=== PATIENT | male | born 1960 | race Caucasian/White ===

== ENCOUNTER 2016-10-09 07:01 | Emergency (ER) | payer MEDICARE, MEDICAID ==
[2016-10-09] MEDS ORDERED: METOPROLOL SUCC *XL* 25MG TAB (TopROL *XL*) As Ordered ONE (07:48)
[2016-10-09] MEDS ORDERED: LORazepam 2 MG/ML VIAL (J2060) As Ordered ONE (08:46)
--- NOTE | 2016-10-09 08:46 | REP ---
Clinical: Malaise. Comparison: 08/12/2012. Findings: The mediastinum and cardiac silhouette are stable and within normal limits for portable technique. The lung quintana are clear without acute consolidation, effusion, or pneumothorax. Skeletal structures are intact. Impression: Normal portable chest x-ray Signed by Dave Griffin MD 10/09/2016 08:37 A
[2016-10-09 08:55] LABS: BASO % 0.6 % (0.0-1.0); EOS # 0.1 K/mm3 (0.0-0.50); LARGE UNSTAINED CELL # 0.1 K/mm3 (0.0-0.4); LARGE UNSTAINED CELL % 1.9 % (0.0-4.0); LYMPH # 1.9 K/mm3 (1.5-4.5); LYMPH % 23.8 % (24.0-44.0); MEAN CORPUSCULAR HEMOGLOBIN 32.9 pg (27.0-33.0); MEAN CORPUSCULAR HGB CONC 35.4 g/dl (32.0-36.5); MONO # 0.6 K/mm3 (0.0-0.8); MONO % 8.7 % (0.0-5.0); NEUTROPHILS # 4.6 K/mm3 (1.8-7.7); PLATELET COUNT, AUTOMATED 192 k/mm3 (150-450); RED CELL DISTRIBUTION WIDTH 12.7 % (11.5-14.5); WHITE BLOOD COUNT 7.4 K/mm3 (4.0-10.0)
[2016-10-09 09:11] LABS: ANION GAP 16 MEQ/L (8-16); BLOOD UREA NITROGEN 20 MG/DL (7-18); CALCIUM LEVEL 9.4 MG/DL (8.5-10.1); CARBON DIOXIDE LEVEL 19 MEQ/L (21-32); CHLORIDE LEVEL 105 MEQ/L (98-107); CREATININE FOR GFR 1.11 MG/DL (0.70-1.30); GLOMERULAR FILTRATION RATE > 60.0 (>56); GLUCOSE, FASTING 129 MG/DL (70-105); SODIUM LEVEL 140 MEQ/L (136-145)
--- NOTE | 2016-10-09 10:30 | EDDOCDS ---
Nurse's Notes [facility] Name: Osbaldo Carreon Age: 56 yrs Sex: Male : 1960 Arrival Date: 10/09/2016 Time: 07:01 Bed 10 Private MD: Alondra Natarajan Diagnosis: Malaise and fatigue;Epilepsy and recurrent seizures;Essential (primary) hypertension Presentation: 10/09 07:10 Presenting complaint: Patient states: states FRANKLIN, body aches, and generalized malaise ml6 since waking. Adult Sepsis Screening: The patient does not have new or worsening altered mentation. Patient's respiratory rate is less than 22. Systolic blood pressure is greater than 100. Patient has a qSOFA score of. Suicide/Homicide risk assessment- the patient denies having any suicidal and/or homicidal ideations and does not present with any other emotional, behavioral or mental health complaints. Status: Patient is not a telephone order clerk room service or dependent. Transition of care: patient was not received from another setting of care. 07:10 Acuity: SANGEETHA Level 4 ml6 07:10 Method Of Arrival: Ambulance ml6 08:58 Acuity: SANGEETHA Level 3 ml6 Triage Assessment: 07:22 General: Appears in no apparent distress, Behavior is appropriate for age, cooperative. ml6 Pain: Location: generalized Pain currently is 5 out of 10 on a pain scale. Pain does not radiate. Quality of pain is described as aching, Pain began 2 hours ago Is continuous Alleviated by nothing. Aggravated by increased activity. HIV screening NA for this visit Offered previously. Neurological: Level of Consciousness is awake, alert, Oriented to person, place, time, Beam Dyer are weak on right Paralysis in right Speech with expressive aphasia noted, Facial droop on right, Pupils are PERRLA. Cardiovascular: No deficits noted. Capillary refill < 3 seconds is brisk in bilateral fingers toes Heart tones S1 S2 present. Respiratory: No deficits noted. Airway is patent Respiratory effort is even, unlabored, Respiratory pattern is regular, symmetrical, Breath sounds are clear bilaterally. GI: No deficits noted. Abdomen is obese, Bowel sounds present X 4 quads. Abd is soft and non tender X 4 quads. Historical: - Allergies: no known allergies; - Home Meds: 1. Dilantin 200mg alternating with 300mg every day Oral cap daily (Last dose: 10/08/2016) 2. Lamictal 250mg am and 200mg afternoon Oral tab (Last dose: 10/08/2016 15:00) 3. metoprolol succinate 50 mg Tb24 1 tab once daily (Last dose: 10/08/2016) 4. baclofen 10 mg Oral tab 1 tab 4 times per day (Last dose: 10/08/2016 20:00) 5. gabapentin 300 mg Oral cap 1 cap 3 times per day (Last dose: 10/08/2016 20:00) 6. atorvastatin 20 mg oral tab 1 tab once daily (Last dose: 10/08/2016 20:00) 7. omeprazole 20 mg Oral cpDR 1 cap once daily (Last dose: 10/08/2016) 8. aspirin 325 mg Oral tab 1 tab once daily (Last dose: 10/08/2016) 9. B complex-minerals oral cap daily (Last dose: 10/08/2016) 10. Citracal + D Maximum 400mg/500mg oral tab daily (Last dose: 10/08/2016) 11. Vitamin B-6 B-1 100mg Oral daily (Last dose: 10/08/2016) 12. meloxicam 7.5 mg oral tab 1 tab once daily (Last dose: 10/08/2016) 13. doxycycline daily (Last dose: 10/08/2016 09:30) 14. Combigan 0.2-0.5 % ophthalmic drop 1 drop every 12 hours (Last dose: 10/08/2016 20:00) 15. ketorolac 0.4 % ophthalmic drop 1 drop twice a day (Last dose: 10/08/2016 20:00) 16. betamethasone valerate 0.1 % Topical crea as needed (Last dose: Unknown) 17. clotrimazole 1 % Topical crea as needed (Last dose: Unknown) 18. furosemide 40 mg Oral tab 1 tab bid q prn (Last dose: Unknown) 19. gemfibrozil 600 mg Oral tab 1 tab 2 times per day (Last dose: 10/08/2016 20:00) - PMHx: CVA; Seizures; Hypertension; Psoriasis; - PSHx: Cholecystectomy; ERCP; - The history from nurses notes was reviewed: and I agree with what is documented. - Social history: Smoking status: Patient states former smoker of tobacco. Not able to communicate due to their condition. - : The pt / caregiver states he / she is not on anticoagulants. Home medication list is obtained from the patient, Unable to Verify Home Med List with the patient / caregiver. - Hospitalizations: : No recent hospitalization is reported. - Exposure Risk Screening:: None identified. - Immunization history:: All immunizations up-to-date. - Family history: Not pertinent. - Social history:: the patient is a non-smoker, the patient does not drink alcohol. Screenin:55 Screening information is obtained from the patient. Fall risk: At risk due to gait ml6 disturbance. Assistance ADL's: Requires assistance with meal preparation, this assistance is provided by bathing, assistance is provided by dressing, assistance is provided by toileting, assistance is provided by ambulation, assistance is provided by housework, assistance is provided by medication administration, assistance is provided by. Abuse/DV Screen: The patient / caregiver reports he/she is: not in a situation that causes fear, pain or injury. Nutritional screening: No deficits noted. Advance Directives: Currently, there is no health care proxy. home support is adequate. Assessment: 07:10 General: see triage assessment. ml6 07:55 General: patient's family in room, patient and family refusing any medication at this ml6 time. 08:10 General: Appears in no apparent distress, comfortable. Pain: Denies pain. Neurological: ml6 No deficits noted. Level of Consciousness is awake, alert. Cardiovascular: No deficits noted. Capillary refill < 3 seconds is brisk in bilateral fingers toes. Respiratory: No deficits noted. Airway is patent Respiratory effort is even, unlabored, Respiratory pattern is regular, symmetrical, Breath sounds are clear bilaterally. GI: No deficits noted. 08:40 General: patient transferred back fro CT after 30 sec seizure, patient postictal with ml6 sonorous resp, Dr. Castillo and family at bedside. 09:10 Reassessment: Patient states symptoms have improved. patient now AAOx3 with family in ml6 room, denies complaint. 09:38 General: patient sitting in up in bed AAOx3, patient eating sami toast. ml6 10:28 General: Appears in no apparent distress, comfortable, Behavior is appropriate for age, ml6 cooperative. Pain: Denies pain. Neurological: No deficits noted. Level of Consciousness is awake, alert, Oriented to person, place, time. Cardiovascular: No deficits noted. Capillary refill < 3 seconds is brisk in bilateral fingers toes. Respiratory: No deficits noted. Airway is patent Respiratory effort is even, unlabored, Respiratory pattern is regular, symmetrical, Breath sounds are clear bilaterally. GI: No deficits noted. Abdomen is obese, Bowel sounds present X 4 quads. Vital Signs: 07:10 Temp 97.8(O); ml6 07:11 BP 161 / 93 (auto/); ml6 07:13 BP 179 / 87 LA Supine (auto/reg); Pulse 95; Resp 18; Temp 97.8(O); Pulse Ox 96% on R/A; jrd Weight 83.91 kg (R); Height 5 ft. 8 in. (172.72 cm) (R); Pain 7/10; 07:26 BP 168 / 107 (auto/); ml6 07:26 Pulse 100 MON; Resp 18; Pulse Ox 96% on R/A; ml6 07:41 BP 174 / 109 (auto/); ml6 07:41 Pulse 98 MON; Resp 18; Pulse Ox 95% on R/A; ml6 07:56 BP 178 / 113 (auto/); ml6 07:56 Pulse 102 MON; Resp 18; Pulse Ox 96% on R/A; ml6 08:11 BP 213 / 124 (auto/); ml6 08:11 Pulse 96 MON; Resp 18; Pulse Ox 98% on R/A; ml6 08:14 BP 180 / 112 (auto/); ml6 08:14 Pulse 100 MON; Resp 18; Pulse Ox 96% on R/A; ml6 08:27 BP 183 / 88 (auto/); ml6 08:27 Pulse 136 MON; Resp 20; Pulse Ox 97% on R/A; ml6 08:41 BP 167 / 87 (auto/); ml6 08:41 Pulse 106 MON; Resp 20; Pulse Ox 95% on R/A; Pain 0/10; ml6 10:29 BP 166 / 84; Pulse 98; Resp 18; Temp 97.9(O); Pulse Ox 98% on R/A; Pain 0/10; ml6 07:13 Body Mass Index 28.13 (83.91 kg, 172.72 cm) [facility] Vitals: 07:10 Log In Time N/A - ambulance arrival. ml6 ED Course: 07:03 Patient visited by Krystal Ellison, Lamp Replacer. lbd 07:03 Alondra Natarajan is Private Physician. lbd 07:03 Patient moved to Waiting lbd 07:04 Dina Ramirez,FARZANEH is Primary Nurse. lbd 07:04 Patient moved to 10 lbd 07:10 Triage Initiated ml6 07:28 Patient visited by Marbin Leary RN. ml6 07:30 Clive Castillo MD is Attending Physician. pc 07:30 Patient visited by Clive Castillo MD. pc 07:40 -Influenza A&B Rapid Antigen - Nose Sent. ml6 07:54 Patient visited by Marbin Leary RN. ml6 07:55 The patient / caregiver is instructed regarding the plan of care and ED course. ml6 07:55 No IV's were initiated during this patient's visit. No procedures done that require ml6 assistance. 08:17 Patient visited by Marbin Leary RN. ml6 08:21 ON LICENSE OF [facility] Payment Agreement was scanned into [employer] and attached to record. mm15 08:40 Inserted peripheral IV: 18gauge IV in left antecubital area and blood collected. ml6 Patient tolerated the procedure well. Labs drawn. (by ED staff). Sent per order to lab. 08:54 Patient visited by Marbin Leary RN. ml6 08:55 Chest, 1 view Returned. EDMS 09:34 Patient visited by Marbin Leary RN. ml6 10:08 Alondra Natarajan is Referral Physician. pc 10:08 Manuel Arnold MD is Referral Physician. pc 10:29 Discontinued IV bleeding controlled, pressure dressing applied, No redness/swelling at ml6 site. Administered Medications: 07:53 Not Given (patient and family refusedd): meTOPROLOL Extended Release 24 hour Tablet ml6 (Succinate) 50 mg PO once 08:46 Drug: LORazepam 0.5 mg [lorazepam 2 mg/mL injection solution (0.25 mL)] Route: IVP; ml6 Site: left antecubital; Order Results: Lab Order: -Influenza A&B Rapid Antigen - Nose; SPEC'M 10/09/16 07:38 Test: INFLUENZA A RAPID SCR by ICA; Value: INFLUENZA A RESULTS NEGATIVE; Status: F Test: INFLUENZA A RAPID SCR by ICA; Value: Comments:; Status: F Test: INFLUENZA B RAPID SCR by ICA; Value: INFLUENZA B RESULTS NEGATIVE; Status: F Test Note: ; The Influenza test is a direct rapid immunoassay for the qualitative detection of Influenza viral antigen. Cell culture (Viral Culture) testing should be considered to confirm NEGATIVE results and to assist in detecting other viruses that can provide similar clinical symptoms. Please contact the lab within 24 hours ([phone]) if confirmatory testing is desired. Lab Order: CBC with Diff; SPEC'M 10/09/16 08:44 Test: WHITE BLOOD COUNT; Value: 7.4; Range: 4.0-10.0; Units: K/mm3; Status: F Test: RED BLOOD COUNT; Value: 4.80; Range: 4.30-6.10; Units: M/mm3; Status: F Test: HEMOGLOBIN; Value: 15.8; Range: 14.0-18.0; Units: g/dl; Status: F Test: HEMATOCRIT; Value: 44.7; Range: 42.0-52.0; Units: %; Status: F Test: MEAN CORPUSCULAR VOLUME; Value: 93.0; Range: 80.0-96.0; Units: fl; Status: F Test: MEAN CORPUSCULAR HEMOGLOBIN; Value: 32.9; Range: 27.0-33.0; Units: pg; Status: F Test: MEAN CORPUSCULAR HGB CONC; Value: 35.4; Range: 32.0-36.5; Units: g/dl; Status: F Test: RED CELL DISTRIBUTION WIDTH; Value: 12.7; Range: 11.5-14.5; Units: %; Status: F Test: PLATELET COUNT, AUTOMATED; Value: 192; Range: 150-450; Units: k/mm3; Status: F Test: NEUTROPHILS %; Value: 63.0; Range: 36.0-66.0; Units: %; Status: F Test: LYMPH %; Value: 23.8; Range: 24.0-44.0; Abnormal: Below low normal; Units: %; Status: F Test: MONO %; Value: 8.7; Range: 0.0-5.0; Abnormal: Above high normal; Units: %; Status: F Test: EOS %; Value: 2.0; Range: 0.0-3.0; Units: %; Status: F Test: BASO %; Value: 0.6; Range: 0.0-1.0; Units: %; Status: F Test: LARGE UNSTAINED CELL %; Value: 1.9; Range: 0.0-4.0; Units: %; Status: F Test: NEUTROPHILS #; Value: 4.6; Range: 1.8-7.7; Units: K/mm3; Status: F Test: LYMPH #; Value: 1.9; Range: 1.5-4.5; Units: K/mm3; Status: F Test: MONO #; Value: 0.6; Range: 0.0-0.8; Units: K/mm3; Status: F Test: EOS #; Value: 0.1; Range: 0.0-0.50; Units: K/mm3; Status: F Test: BASO #; Value: 0.0; Range: 0.0-0.2; Units: K/mm3; Status: F Test: LARGE UNSTAINED CELL #; Value: 0.1; Range: 0.0-0.4; Units: K/mm3; Status: F Lab Order: MED Profile; [facility] 10/09/16 08:44 Test: GLUCOSE, FASTING; Value: 129; Range: 70-105; Abnormal: Above high normal; Units: MG/DL; Status: F Test: BLOOD UREA NITROGEN; Value: 20; Range: 7-18; Abnormal: Above high normal; Units: MG/DL; Status: F Test: CREATININE FOR GFR; Value: 1.11; Range: 0.70-1.30; Units: MG/DL; Status: F Test: GLOMERULAR FILTRATION RATE; Value: > 60.0; Range: >56; Status: F Test: SODIUM LEVEL; Value: 140; Range: 136-145; Units: MEQ/L; Status: F Test: POTASSIUM SERUM; Value: 4.0; Range: 3.5-5.1; Units: MEQ/L; Status: F Test: CHLORIDE LEVEL; Value: 105; Range: 98-107; Units: MEQ/L; Status: F Test: CARBON DIOXIDE LEVEL; Value: 19; Range: 21-32; Abnormal: Below low normal; Units: MEQ/L; Status: F Test: ANION GAP; Value: 16; Range: 8-16; Units: MEQ/L; Status: F Test: CALCIUM LEVEL; Value: 9.4; Range: 8.5-10.1; Units: MG/DL; Status: F Test Note: ; Units are mL/min/1.73 m2 Chronic Kidney Disease Staging per NKF: Stage I & II GFR >=60 Normal to Mildly Decreased Stage III GFR 30-59 Moderately Decreased Stage IV GFR 15-29 Severely Decreased Stage V GFR <15 Very Little GFR Left ESRD GFR <15 on VP [employer] Lab Order: Dilantin Level; SPEC'M 10/09/16 08:44 Test: PHENYTOIN (DILANTIN); Value: 13.8; Range: 10.0-20.0; Units: UG/ML; Status: F Radiology Order: Chest, 1 view Test: Chest, 1 view REASON FOR EXAMINATION: malaise; Clinical: Malaise.; ; Comparison: 08/12/2012.; ; Findings:; The mediastinum and cardiac silhouette are stable and within normal limits for; portable technique. The lung quintana are clear without acute consolidation,; effusion, or pneumothorax. Skeletal structures are intact.; ; Impression:; Normal portable chest x-ray; ; ; Signed by; Dave Griffin MD 10/09/2016 08:37 A; Outcome: 10:08 Discharge ordered by Provider. pc 10:29 Discharge Assessment: patient administered narcotics - no. The following High Risk ml6 Discharge criteria are identified: None. Discharged to home via wheelchair, with family. Condition: stable. Discharge instructions given to patient, Instructed on discharge instructions, follow up and referral plans. medication usage, Demonstrated understanding of instructions, medications, Pt was receptive of discharge instructions/ teaching. No special radiology studies were completed. Property :Personal belongings accompany Pt. 10:29 Patient left the ED. ml6 Signatures: Dispatcher [employer] EDMS Clive Castillo MD MD pc Daly, Linda, Lamp Replacer Unit Marbin Bautista RN RN ml6 Javier Wells mm15 Travon Arnold, ENA FIRE PROTECTION EQUIPMENT TECHNICIAN jrdavis Corrections: (The following items were deleted from the chart) 07:53 07:47 meTOPROLOL Extended Release 24 hour Tablet (Succinate) 50 mg PO ml6 ml6 MTDD
--- NOTE | 2016-10-09 10:31 | EDDOCDS ---
Physician Documentation [facility] Name: Osbaldo Carreon Age: 56 yrs Sex: Male : 1960 Arrival Date: 10/09/2016 Time: 07:01 Bed 10 Private MD: Alondra Natarajan Disposition: 10/09 09:18 Critical Care: Critical care not applicable. pc Disposition: 10/09/16 10:08 Discharged to Home/Self Care. Impression: Malaise and fatigue, Epilepsy and recurrent seizures, Essential (primary) hypertension. - Condition is Stable. - Discharge Instructions: Hypertension, Seizure, Adult, Viral Infections. - Medication Reconciliation, Local Pharmacy Hours form. - Follow up: Alondra Natarajan; When: Call to arrange an appointment; Reason: Continuance of care. Follow up: Manuel Arnold; When: As previously arranged; Reason: Continuance of care. - Problem is new. - Symptoms have improved. HPI: 07:37 This 56 yrs old Male presents to ER via Ambulance with complaints of General pc Illness. 07:37 The history is obtained from the patient, EMS providers. He has had body aches, joint pc aches, a headache and general malaise for 24 hours. No fevers or chills are reported, denies n/v/d, cough. sore throat, denies symptoms. At their worst, the symptoms were mild. In the emergency department, the symptoms are mild. The patient has not experienced similar symptoms in the past. The patient has been recently seen by their primary care provider. Historical: - Allergies: no known allergies; - Home Meds: 1. Dilantin 200mg alternating with 300mg every day Oral cap daily (Last dose: 10/08/2016) 2. Lamictal 250mg am and 200mg afternoon Oral tab (Last dose: 10/08/2016 15:00) 3. metoprolol succinate 50 mg Tb24 1 tab once daily (Last dose: 10/08/2016) 4. baclofen 10 mg Oral tab 1 tab 4 times per day (Last dose: 10/08/2016 20:00) 5. gabapentin 300 mg Oral cap 1 cap 3 times per day (Last dose: 10/08/2016 20:00) 6. atorvastatin 20 mg oral tab 1 tab once daily (Last dose: 10/08/2016 20:00) 7. omeprazole 20 mg Oral cpDR 1 cap once daily (Last dose: 10/08/2016) 8. aspirin 325 mg Oral tab 1 tab once daily (Last dose: 10/08/2016) 9. B complex-minerals oral cap daily (Last dose: 10/08/2016) 10. Citracal + D Maximum 400mg/500mg oral tab daily (Last dose: 10/08/2016) 11. Vitamin B-6 B-1 100mg Oral daily (Last dose: 10/08/2016) 12. meloxicam 7.5 mg oral tab 1 tab once daily (Last dose: 10/08/2016) 13. doxycycline daily (Last dose: 10/08/2016 09:30) 14. Combigan 0.2-0.5 % ophthalmic drop 1 drop every 12 hours (Last dose: 10/08/2016 20:00) 15. ketorolac 0.4 % ophthalmic drop 1 drop twice a day (Last dose: 10/08/2016 20:00) 16. betamethasone valerate 0.1 % Topical crea as needed (Last dose: Unknown) 17. clotrimazole 1 % Topical crea as needed (Last dose: Unknown) 18. furosemide 40 mg Oral tab 1 tab bid q prn (Last dose: Unknown) 19. gemfibrozil 600 mg Oral tab 1 tab 2 times per day (Last dose: 10/08/2016 20:00) - PMHx: CVA; Seizures; Hypertension; Psoriasis; - PSHx: Cholecystectomy; ERCP; - The history from nurses notes was reviewed: and I agree with what is documented. - Social history: Smoking status: Patient states former smoker of tobacco. Not able to communicate due to their condition. - : The pt / caregiver states he / she is not on anticoagulants. Home medication list is obtained from the patient, Unable to Verify Home Med List with the patient / caregiver. - Hospitalizations: : No recent hospitalization is reported. - Exposure Risk Screening:: None identified. - Immunization history:: All immunizations up-to-date. - Family history: Not pertinent. - Social history:: the patient is a non-smoker, the patient does not drink alcohol. ROS: 07:37 All systems are negative except as listed. pc Exam: 07:37 General Appearance: no acute distress, alert. pc 07:37 EENT: normal eye inspection, ears, nose and throat normal, pharynx normal, mucous membranes moist 07:37 Neck: The exam reveals no acute abnormalities. ROM is normal and painless. No nuchal rigidity is noted.. 07:37 Respiratory: no respiratory distress, normal breath sounds. 07:37 CVS: regular pulse rate, regular rhythm, normal S1 and S2, no murmurs, strong peripheral pulses. 07:37 Abdomen: soft, non-tender, no organomegaly, normal bowel sounds. 07:37 Back: normal inspection. 07:37 Skin: skin color is normal, warm, dry. 07:37 Extremities: The extremities have a grossly normal appearance. 07:37 Neuro: alert, oriented, chronic aphasia and right sided weakness due to prior CVA. Vital Signs: 07:10 Temp 97.8(O); ml6 07:11 BP 161 / 93 (auto/); ml6 07:13 BP 179 / 87 LA Supine (auto/reg); Pulse 95; Resp 18; Temp 97.8(O); Pulse Ox 96% on R/A; jrd Weight 83.91 kg / 184.99 lbs (R); Height 5 ft. 8 in. (172.72 cm) (R); Pain 7/10; 07:26 BP 168 / 107 (auto/); ml6 07:26 Pulse 100 MON; Resp 18; Pulse Ox 96% on R/A; ml6 07:41 BP 174 / 109 (auto/); ml6 07:41 Pulse 98 MON; Resp 18; Pulse Ox 95% on R/A; ml6 07:56 BP 178 / 113 (auto/); ml6 07:56 Pulse 102 MON; Resp 18; Pulse Ox 96% on R/A; ml6 08:11 BP 213 / 124 (auto/); ml6 08:11 Pulse 96 MON; Resp 18; Pulse Ox 98% on R/A; ml6 08:14 BP 180 / 112 (auto/); ml6 08:14 Pulse 100 MON; Resp 18; Pulse Ox 96% on R/A; ml6 08:27 BP 183 / 88 (auto/); ml6 08:27 Pulse 136 MON; Resp 20; Pulse Ox 97% on R/A; ml6 08:41 BP 167 / 87 (auto/); ml6 08:41 Pulse 106 MON; Resp 20; Pulse Ox 95% on R/A; Pain 0/10; ml6 10:29 BP 166 / 84; Pulse 98; Resp 18; Temp 97.9(O); Pulse Ox 98% on R/A; Pain 0/10; ml6 07:13 Body Mass Index 28.13 (83.91 kg, 172.72 cm) jrd MDM: 07:31 Obtain sample by nasopharyngeal swab ordered. pc 07:31 -Influenza A&B Rapid Antigen - Nose Ordered. EDMS 07:37 Differential Diagnosis: viral illness, r/o Influenza. Plan: labs. pc 07:47 meTOPROLOL Extended Release 24 hour Tablet (Succinate) 50 mg PO once ordered. ml6 07:53 meTOPROLOL Extended Release 24 hour Tablet (Succinate) 50 mg PO once ordered. ml6 07:53 ED course: His BP is elevated and he has not taken his morning meds. When the RN pc attempted to administer his usual dose of morning meds, the family refused and wish to go home and get his own pills.. 08:03 -Influenza A&B Rapid Antigen - Nose Reviewed. pc 08:04 Financial registration complete. mm15 08:21 [facility] Payment Agreement was scanned into [employer] and attached to record. mm15 08:26 ED course: The patient did not receive his morning medications on time, as detailed pc above, because the family refused. While in Xray, he had a 1-2 minute grand mal seizure and is now post-ictal, as the family arrives with his own medication supply.. 08:29 Misc Laundry Press Operator Order ordered. pc 08:30 CBC with Diff Ordered. EDMS 08:30 MED Profile Ordered. EDMS 08:30 Dilantin Level Ordered. EDMS 08:30 Chest, 1 view Ordered. EDMS 08:30 [facility] Laundry Press Operator Order complete. lbd 08:31 Mis. Nursing Order ordered. pc 08:33 LAMOTRIGINE,LAMICTAL Ordered. EDMS 08:46 LORazepam 0.5 mg IVP once ordered. pc 09:04 CBC with Diff Reviewed. pc 09:04 Chest, 1 view Reviewed. pc 09:16 REGULAR+DIET ordered. EDMS 09:18 MED Profile Reviewed. pc 09:18 Dilantin Level Reviewed. pc 09:18 Data reviewed: old medical records, vital signs, nurses notes, lab test results, all pc radiology studies and available results. Test interpretation: LAB - all labs as ordered have been reviewed, interpreted and considered in the overall management of the clinical presentation; X-RAY - interpreted by Radiologist and personally reviewed, 1 view chest no acute disease. The patient has been re-examined and re-evaluated. The patient's symptoms have mildly improved after treatment. Disposition: The historical points, examination findings, and any diagnostic results supporting the provided diagnosis, were discussed with the patient or legal guardian. The need for outpatient follow up with the provider listed on their discharge instructions was discussed. They were encouraged to return to [facility], or the nearest ED, if symptoms worsen/persist, or for any other questions/concerns. Administered Medications: 07:53 Not Given (patient and family refusedd): meTOPROLOL Extended Release 24 hour Tablet ml6 (Succinate) 50 mg PO once 08:46 Drug: LORazepam 0.5 mg [lorazepam 2 mg/mL injection solution (0.25 mL)] Route: IVP; ml6 Site: left antecubital; Signatures: Dispatcher [employer] EDMS Clive Castilol MD MD pc Krystal Ellison, Federal Law Clerk Unit lbd Marbin Leary RN RN ml6 Javier Wells mm15 The chart was reviewed and I authenticate all verbal orders and agree with the evaluation and treatment provided.Corrections: (The following items were deleted from the chart) 07:44 07:37 He has had body aches, joint aches, a headache and general malaise for 24 hours. No fevers or chills are reported, denies n/v/d, cough. sore throat. pc 08:30 08:10 Chest, 2 view (PA\E\Lat)+XR ordered. EDMS EDMS Attachments: 08:21 [facility] Payment Agreement mm15 MTDD
--- NOTE | 2016-10-11 11:30 | EDDOCDS ---
Physician Documentation [facility] Name: Osbaldo Carreon Age: 56 yrs Sex: Male : 1960 Arrival Date: 10/09/2016 Time: 07:01 Bed 10 Private MD: Alondra Natarajan Disposition: 10/09 09:18 Critical Care: Critical care not applicable. pc Disposition: 10/09/16 10:08 Discharged to Home/Self Care. Impression: Malaise and fatigue, Epilepsy and recurrent seizures, Essential (primary) hypertension. - Condition is Stable. - Discharge Instructions: Hypertension, Seizure, Adult, Viral Infections. - Medication Reconciliation, Local Pharmacy Hours form. - Follow up: Alondra Natarajan; When: Call to arrange an appointment; Reason: Continuance of care. Follow up: Manuel Arnold; When: As previously arranged; Reason: Continuance of care. - Problem is new. - Symptoms have improved. HPI: 07:37 This 56 yrs old Male presents to ER via Ambulance with complaints of General pc Illness. 07:37 The history is obtained from the patient, EMS providers. He has had body aches, joint pc aches, a headache and general malaise for 24 hours. No fevers or chills are reported, denies n/v/d, cough. sore throat, denies symptoms. At their worst, the symptoms were mild. In the emergency department, the symptoms are mild. The patient has not experienced similar symptoms in the past. The patient has been recently seen by their primary care provider. Historical: - Allergies: no known allergies; - Home Meds: 1. Dilantin 200mg alternating with 300mg every day Oral cap daily (Last dose: 10/08/2016) 2. Lamictal 250mg am and 200mg afternoon Oral tab (Last dose: 10/08/2016 15:00) 3. metoprolol succinate 50 mg Tb24 1 tab once daily (Last dose: 10/08/2016) 4. baclofen 10 mg Oral tab 1 tab 4 times per day (Last dose: 10/08/2016 20:00) 5. gabapentin 300 mg Oral cap 1 cap 3 times per day (Last dose: 10/08/2016 20:00) 6. atorvastatin 20 mg oral tab 1 tab once daily (Last dose: 10/08/2016 20:00) 7. omeprazole 20 mg Oral cpDR 1 cap once daily (Last dose: 10/08/2016) 8. aspirin 325 mg Oral tab 1 tab once daily (Last dose: 10/08/2016) 9. B complex-minerals oral cap daily (Last dose: 10/08/2016) 10. Citracal + D Maximum 400mg/500mg oral tab daily (Last dose: 10/08/2016) 11. Vitamin B-6 B-1 100mg Oral daily (Last dose: 10/08/2016) 12. meloxicam 7.5 mg oral tab 1 tab once daily (Last dose: 10/08/2016) 13. doxycycline daily (Last dose: 10/08/2016 09:30) 14. Combigan 0.2-0.5 % ophthalmic drop 1 drop every 12 hours (Last dose: 10/08/2016 20:00) 15. ketorolac 0.4 % ophthalmic drop 1 drop twice a day (Last dose: 10/08/2016 20:00) 16. betamethasone valerate 0.1 % Topical crea as needed (Last dose: Unknown) 17. clotrimazole 1 % Topical crea as needed (Last dose: Unknown) 18. furosemide 40 mg Oral tab 1 tab bid q prn (Last dose: Unknown) 19. gemfibrozil 600 mg Oral tab 1 tab 2 times per day (Last dose: 10/08/2016 20:00) - PMHx: CVA; Seizures; Hypertension; Psoriasis; - PSHx: Cholecystectomy; ERCP; - The history from nurses notes was reviewed: and I agree with what is documented. - Social history: Smoking status: Patient states former smoker of tobacco. Not able to communicate due to their condition. - : The pt / caregiver states he / she is not on anticoagulants. Home medication list is obtained from the patient, Unable to Verify Home Med List with the patient / caregiver. - Hospitalizations: : No recent hospitalization is reported. - Exposure Risk Screening:: None identified. - Immunization history:: All immunizations up-to-date. - Family history: Not pertinent. - Social history:: the patient is a non-smoker, the patient does not drink alcohol. ROS: 07:37 All systems are negative except as listed. pc Exam: 07:37 General Appearance: no acute distress, alert. pc 07:37 EENT: normal eye inspection, ears, nose and throat normal, pharynx normal, mucous membranes moist 07:37 Neck: The exam reveals no acute abnormalities. ROM is normal and painless. No nuchal rigidity is noted.. 07:37 Respiratory: no respiratory distress, normal breath sounds. 07:37 CVS: regular pulse rate, regular rhythm, normal S1 and S2, no murmurs, strong peripheral pulses. 07:37 Abdomen: soft, non-tender, no organomegaly, normal bowel sounds. 07:37 Back: normal inspection. 07:37 Skin: skin color is normal, warm, dry. 07:37 Extremities: The extremities have a grossly normal appearance. 07:37 Neuro: alert, oriented, chronic aphasia and right sided weakness due to prior CVA. Vital Signs: 07:10 Temp 97.8(O); ml6 07:11 BP 161 / 93 (auto/); ml6 07:13 BP 179 / 87 LA Supine (auto/reg); Pulse 95; Resp 18; Temp 97.8(O); Pulse Ox 96% on R/A; jrd Weight 83.91 kg / 184.99 lbs (R); Height 5 ft. 8 in. (172.72 cm) (R); Pain 7/10; 07:26 BP 168 / 107 (auto/); ml6 07:26 Pulse 100 MON; Resp 18; Pulse Ox 96% on R/A; ml6 07:41 BP 174 / 109 (auto/); ml6 07:41 Pulse 98 MON; Resp 18; Pulse Ox 95% on R/A; ml6 07:56 BP 178 / 113 (auto/); ml6 07:56 Pulse 102 MON; Resp 18; Pulse Ox 96% on R/A; ml6 08:11 BP 213 / 124 (auto/); ml6 08:11 Pulse 96 MON; Resp 18; Pulse Ox 98% on R/A; ml6 08:14 BP 180 / 112 (auto/); ml6 08:14 Pulse 100 MON; Resp 18; Pulse Ox 96% on R/A; ml6 08:27 BP 183 / 88 (auto/); ml6 08:27 Pulse 136 MON; Resp 20; Pulse Ox 97% on R/A; ml6 08:41 BP 167 / 87 (auto/); ml6 08:41 Pulse 106 MON; Resp 20; Pulse Ox 95% on R/A; Pain 0/10; ml6 10:29 BP 166 / 84; Pulse 98; Resp 18; Temp 97.9(O); Pulse Ox 98% on R/A; Pain 0/10; ml6 07:13 Body Mass Index 28.13 (83.91 kg, 172.72 cm) jrd MDM: 07:31 Obtain sample by nasopharyngeal swab ordered. pc 07:31 -Influenza A&B Rapid Antigen - Nose Ordered. EDMS 07:37 Differential Diagnosis: viral illness, r/o Influenza. Plan: labs. pc 07:47 meTOPROLOL Extended Release 24 hour Tablet (Succinate) 50 mg PO once ordered. ml6 07:53 meTOPROLOL Extended Release 24 hour Tablet (Succinate) 50 mg PO once ordered. ml6 07:53 ED course: His BP is elevated and he has not taken his morning meds. When the RN pc attempted to administer his usual dose of morning meds, the family refused and wish to go home and get his own pills.. 08:03 -Influenza A&B Rapid Antigen - Nose Reviewed. pc 08:04 Financial registration complete. mm15 08:21 [facility] Payment Agreement was scanned into [employer] and attached to record. mm15 08:26 ED course: The patient did not receive his morning medications on time, as detailed pc above, because the family refused. While in Xray, he had a 1-2 minute grand mal seizure and is now post-ictal, as the family arrives with his own medication supply.. 08:29 Misc Grape Crusher Order ordered. pc 08:30 CBC with Diff Ordered. EDMS 08:30 MED Profile Ordered. EDMS 08:30 Dilantin Level Ordered. EDMS 08:30 Chest, 1 view Ordered. EDMS 08:30 [facility] Grape Crusher Order complete. lbd 08:31 Mis. Nursing Order ordered. pc 08:33 LAMOTRIGINE,LAMICTAL Ordered. EDMS 08:46 LORazepam 0.5 mg IVP once ordered. pc 09:04 CBC with Diff Reviewed. pc 09:04 Chest, 1 view Reviewed. pc 09:16 REGULAR+DIET ordered. EDMS 09:18 MED Profile Reviewed. pc 09:18 Dilantin Level Reviewed. pc 09:18 Data reviewed: old medical records, vital signs, nurses notes, lab test results, all pc radiology studies and available results. Test interpretation: LAB - all labs as ordered have been reviewed, interpreted and considered in the overall management of the clinical presentation; X-RAY - interpreted by Radiologist and personally reviewed, 1 view chest no acute disease. The patient has been re-examined and re-evaluated. The patient's symptoms have mildly improved after treatment. Disposition: The historical points, examination findings, and any diagnostic results supporting the provided diagnosis, were discussed with the patient or legal guardian. The need for outpatient follow up with the provider listed on their discharge instructions was discussed. They were encouraged to return to [facility], or the nearest ED, if symptoms worsen/persist, or for any other questions/concerns. Administered Medications: 07:53 Not Given (patient and family refusedd): meTOPROLOL Extended Release 24 hour Tablet ml6 (Succinate) 50 mg PO once 08:46 Drug: LORazepam 0.5 mg [lorazepam 2 mg/mL injection solution (0.25 mL)] Route: IVP; ml6 Site: left antecubital; Signatures: Dispatcher [employer] EDMS Clive Castillo MD MD pc Krystal Ellison, Food And Nutrition Services Assistant Unit lbd Marbin Leary RN RN ml6 Javier Wells mm15 The chart was reviewed and I authenticate all verbal orders and agree with the evaluation and treatment provided.Corrections: (The following items were deleted from the chart) 07:44 07:37 He has had body aches, joint aches, a headache and general malaise for 24 hours. No fevers or chills are reported, denies n/v/d, cough. sore throat. pc 08:30 08:10 Chest, 2 view (PA\E\Lat)+XR ordered. EDMS EDMS Attachments: 08:21 [facility] Payment Agreement mm15 Chart Complete MTDD
--- NOTE | 2016-10-11 11:30 | EDDOCDS ---
Nurse's Notes [facility] [place] Name: Osbaldo Carreon Age: 56 yrs Sex: Male : 1960 Arrival Date: 10/09/2016 Time: 07:01 Bed 10 Private MD: Alondra Natarajan Diagnosis: Malaise and fatigue;Epilepsy and recurrent seizures;Essential (primary) hypertension Presentation: 10/09 07:10 Presenting complaint: Patient states: states FRANKLIN, body aches, and generalized malaise ml6 since waking. Adult Sepsis Screening: The patient does not have new or worsening altered mentation. Patient's respiratory rate is less than 22. Systolic blood pressure is greater than 100. Patient has a qSOFA score of. Suicide/Homicide risk assessment- the patient denies having any suicidal and/or homicidal ideations and does not present with any other emotional, behavioral or mental health complaints. Status: Patient is not a reactor service operator or dependent. Transition of care: patient was not received from another setting of care. 07:10 Acuity: SANGEETHA Level 4 ml6 07:10 Method Of Arrival: Ambulance ml6 08:58 Acuity: SANGEETHA Level 3 ml6 Triage Assessment: 07:22 General: Appears in no apparent distress, Behavior is appropriate for age, cooperative. ml6 Pain: Location: generalized Pain currently is 5 out of 10 on a pain scale. Pain does not radiate. Quality of pain is described as aching, Pain began 2 hours ago Is continuous Alleviated by nothing. Aggravated by increased activity. HIV screening NA for this visit Offered previously. Neurological: Level of Consciousness is awake, alert, Oriented to person, place, time, Environmental Designer are weak on right Paralysis in right Speech with expressive aphasia noted, Facial droop on right, Pupils are PERRLA. Cardiovascular: No deficits noted. Capillary refill < 3 seconds is brisk in bilateral fingers toes Heart tones S1 S2 present. Respiratory: No deficits noted. Airway is patent Respiratory effort is even, unlabored, Respiratory pattern is regular, symmetrical, Breath sounds are clear bilaterally. GI: No deficits noted. Abdomen is obese, Bowel sounds present X 4 quads. Abd is soft and non tender X 4 quads. Historical: - Allergies: no known allergies; - Home Meds: 1. Dilantin 200mg alternating with 300mg every day Oral cap daily (Last dose: 10/08/2016) 2. Lamictal 250mg am and 200mg afternoon Oral tab (Last dose: 10/08/2016 15:00) 3. metoprolol succinate 50 mg Tb24 1 tab once daily (Last dose: 10/08/2016) 4. baclofen 10 mg Oral tab 1 tab 4 times per day (Last dose: 10/08/2016 20:00) 5. gabapentin 300 mg Oral cap 1 cap 3 times per day (Last dose: 10/08/2016 20:00) 6. atorvastatin 20 mg oral tab 1 tab once daily (Last dose: 10/08/2016 20:00) 7. omeprazole 20 mg Oral cpDR 1 cap once daily (Last dose: 10/08/2016) 8. aspirin 325 mg Oral tab 1 tab once daily (Last dose: 10/08/2016) 9. B complex-minerals oral cap daily (Last dose: 10/08/2016) 10. Citracal + D Maximum 400mg/500mg oral tab daily (Last dose: 10/08/2016) 11. Vitamin B-6 B-1 100mg Oral daily (Last dose: 10/08/2016) 12. meloxicam 7.5 mg oral tab 1 tab once daily (Last dose: 10/08/2016) 13. doxycycline daily (Last dose: 10/08/2016 09:30) 14. Combigan 0.2-0.5 % ophthalmic drop 1 drop every 12 hours (Last dose: 10/08/2016 20:00) 15. ketorolac 0.4 % ophthalmic drop 1 drop twice a day (Last dose: 10/08/2016 20:00) 16. betamethasone valerate 0.1 % Topical crea as needed (Last dose: Unknown) 17. clotrimazole 1 % Topical crea as needed (Last dose: Unknown) 18. furosemide 40 mg Oral tab 1 tab bid q prn (Last dose: Unknown) 19. gemfibrozil 600 mg Oral tab 1 tab 2 times per day (Last dose: 10/08/2016 20:00) - PMHx: CVA; Seizures; Hypertension; Psoriasis; - PSHx: Cholecystectomy; ERCP; - The history from nurses notes was reviewed: and I agree with what is documented. - Social history: Smoking status: Patient states former smoker of tobacco. Not able to communicate due to their condition. - : The pt / caregiver states he / she is not on anticoagulants. Home medication list is obtained from the patient, Unable to Verify Home Med List with the patient / caregiver. - Hospitalizations: : No recent hospitalization is reported. - Exposure Risk Screening:: None identified. - Immunization history:: All immunizations up-to-date. - Family history: Not pertinent. - Social history:: the patient is a non-smoker, the patient does not drink alcohol. Screenin:55 Screening information is obtained from the patient. Fall risk: At risk due to gait ml6 disturbance. Assistance ADL's: Requires assistance with meal preparation, this assistance is provided by bathing, assistance is provided by dressing, assistance is provided by toileting, assistance is provided by ambulation, assistance is provided by housework, assistance is provided by medication administration, assistance is provided by. Abuse/DV Screen: The patient / caregiver reports he/she is: not in a situation that causes fear, pain or injury. Nutritional screening: No deficits noted. Advance Directives: Currently, there is no health care proxy. home support is adequate. Assessment: 07:10 General: see triage assessment. ml6 07:55 General: patient's family in room, patient and family refusing any medication at this ml6 time. 08:10 General: Appears in no apparent distress, comfortable. Pain: Denies pain. Neurological: ml6 No deficits noted. Level of Consciousness is awake, alert. Cardiovascular: No deficits noted. Capillary refill < 3 seconds is brisk in bilateral fingers toes. Respiratory: No deficits noted. Airway is patent Respiratory effort is even, unlabored, Respiratory pattern is regular, symmetrical, Breath sounds are clear bilaterally. GI: No deficits noted. 08:40 General: patient transferred back fro CT after 30 sec seizure, patient postictal with ml6 sonorous resp, Dr. Castillo and family at bedside. 09:10 Reassessment: Patient states symptoms have improved. patient now AAOx3 with family in ml6 room, denies complaint. 09:38 General: patient sitting in up in bed AAOx3, patient eating georgian toast. ml6 10:28 General: Appears in no apparent distress, comfortable, Behavior is appropriate for age, ml6 cooperative. Pain: Denies pain. Neurological: No deficits noted. Level of Consciousness is awake, alert, Oriented to person, place, time. Cardiovascular: No deficits noted. Capillary refill < 3 seconds is brisk in bilateral fingers toes. Respiratory: No deficits noted. Airway is patent Respiratory effort is even, unlabored, Respiratory pattern is regular, symmetrical, Breath sounds are clear bilaterally. GI: No deficits noted. Abdomen is obese, Bowel sounds present X 4 quads. Vital Signs: 07:10 Temp 97.8(O); ml6 07:11 BP 161 / 93 (auto/); ml6 07:13 BP 179 / 87 LA Supine (auto/reg); Pulse 95; Resp 18; Temp 97.8(O); Pulse Ox 96% on R/A; jrd Weight 83.91 kg (R); Height 5 ft. 8 in. (172.72 cm) (R); Pain 7/10; 07:26 BP 168 / 107 (auto/); ml6 07:26 Pulse 100 MON; Resp 18; Pulse Ox 96% on R/A; ml6 07:41 BP 174 / 109 (auto/); ml6 07:41 Pulse 98 MON; Resp 18; Pulse Ox 95% on R/A; ml6 07:56 BP 178 / 113 (auto/); ml6 07:56 Pulse 102 MON; Resp 18; Pulse Ox 96% on R/A; ml6 08:11 BP 213 / 124 (auto/); ml6 08:11 Pulse 96 MON; Resp 18; Pulse Ox 98% on R/A; ml6 08:14 BP 180 / 112 (auto/); ml6 08:14 Pulse 100 MON; Resp 18; Pulse Ox 96% on R/A; ml6 08:27 BP 183 / 88 (auto/); ml6 08:27 Pulse 136 MON; Resp 20; Pulse Ox 97% on R/A; ml6 08:41 BP 167 / 87 (auto/); ml6 08:41 Pulse 106 MON; Resp 20; Pulse Ox 95% on R/A; Pain 0/10; ml6 10:29 BP 166 / 84; Pulse 98; Resp 18; Temp 97.9(O); Pulse Ox 98% on R/A; Pain 0/10; ml6 07:13 Body Mass Index 28.13 (83.91 kg, 172.72 cm) [facility] Vitals: 07:10 Log In Time N/A - ambulance arrival. ml6 ED Course: 07:03 Patient visited by Krystal Ellison, Soft Work Cigar Machine Operator. lbd 07:03 Alondra Natarajan is Private Physician. lbd 07:03 Patient moved to Waiting lbd 07:04 Dina Ramirez,FARZANEH is Primary Nurse. lbd 07:04 Patient moved to 10 lbd 07:10 Triage Initiated ml6 07:28 Patient visited by Marbin Leary RN. ml6 07:30 Clive Castillo MD is Attending Physician. pc 07:30 Patient visited by Clive Castillo MD. pc 07:40 -Influenza A&B Rapid Antigen - Nose Sent. ml6 07:54 Patient visited by Marbin Leary RN. ml6 07:55 The patient / caregiver is instructed regarding the plan of care and ED course. ml6 07:55 No IV's were initiated during this patient's visit. No procedures done that require ml6 assistance. 08:17 Patient visited by Marbin Leary RN. ml6 08:21 [facility] Payment Agreement was scanned into [employer] and attached to record. mm15 08:40 Inserted peripheral IV: 18gauge IV in left antecubital area and blood collected. ml6 Patient tolerated the procedure well. Labs drawn. (by ED staff). Sent per order to lab. 08:54 Patient visited by Marbin Leary RN. ml6 08:55 Chest, 1 view Returned. EDMS 09:34 Patient visited by Marbin Leary RN. ml6 10:08 Alondra aNtarajan is Referral Physician. pc 10:08 Manuel Arnold MD is Referral Physician. pc 10:29 Discontinued IV bleeding controlled, pressure dressing applied, No redness/swelling at ml6 site. Administered Medications: 07:53 Not Given (patient and family refusedd): meTOPROLOL Extended Release 24 hour Tablet ml6 (Succinate) 50 mg PO once 08:46 Drug: LORazepam 0.5 mg [lorazepam 2 mg/mL injection solution (0.25 mL)] Route: IVP; ml6 Site: left antecubital; Order Results: Lab Order: -Influenza A&B Rapid Antigen - Nose; SPEC'M 10/09/16 07:38 Test: INFLUENZA A RAPID SCR by ICA; Value: INFLUENZA A RESULTS NEGATIVE; Status: F Test: INFLUENZA A RAPID SCR by ICA; Value: Comments:; Status: F Test: INFLUENZA B RAPID SCR by ICA; Value: INFLUENZA B RESULTS NEGATIVE; Status: F Test Note: ; The Influenza test is a direct rapid immunoassay for the qualitative detection of Influenza viral antigen. Cell culture (Viral Culture) testing should be considered to confirm NEGATIVE results and to assist in detecting other viruses that can provide similar clinical symptoms. Please contact the lab within 24 hours ([phone]) if confirmatory testing is desired. Lab Order: CBC with Diff; SPEC'M 10/09/16 08:44 Test: WHITE BLOOD COUNT; Value: 7.4; Range: 4.0-10.0; Units: K/mm3; Status: F Test: RED BLOOD COUNT; Value: 4.80; Range: 4.30-6.10; Units: M/mm3; Status: F Test: HEMOGLOBIN; Value: 15.8; Range: 14.0-18.0; Units: g/dl; Status: F Test: HEMATOCRIT; Value: 44.7; Range: 42.0-52.0; Units: %; Status: F Test: MEAN CORPUSCULAR VOLUME; Value: 93.0; Range: 80.0-96.0; Units: fl; Status: F Test: MEAN CORPUSCULAR HEMOGLOBIN; Value: 32.9; Range: 27.0-33.0; Units: pg; Status: F Test: MEAN CORPUSCULAR HGB CONC; Value: 35.4; Range: 32.0-36.5; Units: g/dl; Status: F Test: RED CELL DISTRIBUTION WIDTH; Value: 12.7; Range: 11.5-14.5; Units: %; Status: F Test: PLATELET COUNT, AUTOMATED; Value: 192; Range: 150-450; Units: k/mm3; Status: F Test: NEUTROPHILS %; Value: 63.0; Range: 36.0-66.0; Units: %; Status: F Test: LYMPH %; Value: 23.8; Range: 24.0-44.0; Abnormal: Below low normal; Units: %; Status: F Test: MONO %; Value: 8.7; Range: 0.0-5.0; Abnormal: Above high normal; Units: %; Status: F Test: EOS %; Value: 2.0; Range: 0.0-3.0; Units: %; Status: F Test: BASO %; Value: 0.6; Range: 0.0-1.0; Units: %; Status: F Test: LARGE UNSTAINED CELL %; Value: 1.9; Range: 0.0-4.0; Units: %; Status: F Test: NEUTROPHILS #; Value: 4.6; Range: 1.8-7.7; Units: K/mm3; Status: F Test: LYMPH #; Value: 1.9; Range: 1.5-4.5; Units: K/mm3; Status: F Test: MONO #; Value: 0.6; Range: 0.0-0.8; Units: K/mm3; Status: F Test: EOS #; Value: 0.1; Range: 0.0-0.50; Units: K/mm3; Status: F Test: BASO #; Value: 0.0; Range: 0.0-0.2; Units: K/mm3; Status: F Test: LARGE UNSTAINED CELL #; Value: 0.1; Range: 0.0-0.4; Units: K/mm3; Status: F Lab Order: MED Profile; [facility] 10/09/16 08:44 Test: GLUCOSE, FASTING; Value: 129; Range: 70-105; Abnormal: Above high normal; Units: MG/DL; Status: F Test: BLOOD UREA NITROGEN; Value: 20; Range: 7-18; Abnormal: Above high normal; Units: MG/DL; Status: F Test: CREATININE FOR GFR; Value: 1.11; Range: 0.70-1.30; Units: MG/DL; Status: F Test: GLOMERULAR FILTRATION RATE; Value: > 60.0; Range: >56; Status: F Test: SODIUM LEVEL; Value: 140; Range: 136-145; Units: MEQ/L; Status: F Test: POTASSIUM SERUM; Value: 4.0; Range: 3.5-5.1; Units: MEQ/L; Status: F Test: CHLORIDE LEVEL; Value: 105; Range: 98-107; Units: MEQ/L; Status: F Test: CARBON DIOXIDE LEVEL; Value: 19; Range: 21-32; Abnormal: Below low normal; Units: MEQ/L; Status: F Test: ANION GAP; Value: 16; Range: 8-16; Units: MEQ/L; Status: F Test: CALCIUM LEVEL; Value: 9.4; Range: 8.5-10.1; Units: MG/DL; Status: F Test Note: ; Units are mL/min/1.73 m2 Chronic Kidney Disease Staging per NKF: Stage I & II GFR >=60 Normal to Mildly Decreased Stage III GFR 30-59 Moderately Decreased Stage IV GFR 15-29 Severely Decreased Stage V GFR <15 Very Little GFR Left ESRD GFR <15 on ADOBE FLEX DEVELOPER Lab Order: Dilantin Level; SPEC'M 10/09/16 08:44 Test: PHENYTOIN (DILANTIN); Value: 13.8; Range: 10.0-20.0; Units: UG/ML; Status: F Radiology Order: Chest, 1 view Test: Chest, 1 view REASON FOR EXAMINATION: malaise; Clinical: Malaise.; ; Comparison: 08/12/2012.; ; Findings:; The mediastinum and cardiac silhouette are stable and within normal limits for; portable technique. The lung quintana are clear without acute consolidation,; effusion, or pneumothorax. Skeletal structures are intact.; ; Impression:; Normal portable chest x-ray; ; ; Signed by; Dave Griffin MD 10/09/2016 08:37 A; Outcome: 10:08 Discharge ordered by Provider. pc 10:29 Discharge Assessment: patient administered narcotics - no. The following High Risk ml6 Discharge criteria are identified: None. Discharged to home via wheelchair, with family. Condition: stable. Discharge instructions given to patient, Instructed on discharge instructions, follow up and referral plans. medication usage, Demonstrated understanding of instructions, medications, Pt was receptive of discharge instructions/ teaching. No special radiology studies were completed. Property :Personal belongings accompany Pt. 10:29 Patient left the ED. ml6 Signatures: Dispatcher [employer] EDMS Clive Castillo MD MD pc Daly, Linda, Soft Work Cigar Machine Operator Unit Marbin Bautista RN RN ml6 Javier Wells mm15 Travon Arnold, ENA FORCER MAKER jrdavis Corrections: (The following items were deleted from the chart) 07:53 07:47 meTOPROLOL Extended Release 24 hour Tablet (Succinate) 50 mg PO ml6 ml6 Chart Complete MTDD
== END 2016-10-09 10:29 | disposition home or self-care (01) ==
LOC: M ED 07:01
DX: R53.81 Other malaise (principal); I10 Essential (primary) hypertension; G40.909 Epilepsy, unspecified, not intractable, without status epilepticus; L40.9 Psoriasis, unspecified; Z86.73 Personal history of transient ischemic attack (TIA), and cerebral infarction without residual deficits; Z79.899 Other long term (current) drug therapy; Z79.2 Long term (current) use of antibiotics; Z79.82 Long term (current) use of aspirin
CPT/HCPCS: 36415; 71010; 80048; 80175; 80185; 85025; 87804; 96374; 99284; J2060

== ENCOUNTER → 2017-02-09 | Outpatient (REF) | payer MEDICARE, MEDICAID ==
[2017-02-09 11:44] LABS: BASO % 0.8 % (0.0-1.0); EOS # 0.1 K/mm3 (0.0-0.50); EOS % 2.8 % (0.0-3.0); LYMPH # 1.1 K/mm3 (1.5-4.5); LYMPH % 27.2 % (24.0-44.0); MEAN CORPUSCULAR HEMOGLOBIN 34.1 pg (27.0-33.0); MEAN CORPUSCULAR VOLUME 94.6 fl (80.0-96.0); MONO # 0.3 K/mm3 (0.0-0.8); MONO % 7.2 % (0.0-5.0); NEUTROPHILS # 2.3 K/mm3 (1.8-7.7); RED CELL DISTRIBUTION WIDTH 12.6 % (11.5-14.5); WHITE BLOOD COUNT 3.9 K/mm3 (4.0-10.0)
[2017-02-09 16:00] LABS: ALBUMIN 4.1 GM/DL (3.2-5.2); ALBUMIN/GLOBULIN RATIO 1.24 (1.00-1.93); ALKALINE PHOSPHATASE 131 U/L (45-117); ALT/SGPT 21 U/L (12-78); ANION GAP 8 MEQ/L (8-16); AST/SGOT 15 U/L (15-37); BILIRUBIN,TOTAL 0.4 MG/DL (0.2-1.0); BLOOD UREA NITROGEN 13 MG/DL (7-18); CALCIUM LEVEL 8.9 MG/DL (8.5-10.1); CARBON DIOXIDE LEVEL 26 MEQ/L (21-32); CHLORIDE LEVEL 106 MEQ/L (98-107); CHOLESTEROL LEVEL 159 MG/DL (<200); CREATININE FOR GFR 0.86 MG/DL (0.70-1.30); FREE T4 0.97 NG/DL (0.76-1.46); GLOMERULAR FILTRATION RATE > 60.0 (>56); GLUCOSE, FASTING 105 MG/DL (70-105); POTASSIUM SERUM 4.1 MEQ/L (3.5-5.1); SODIUM LEVEL 140 MEQ/L (136-145); TOTAL PROTEIN 7.4 GM/DL (6.4-8.2); TRIGLYCERIDES LEVEL 157 MG/DL (<150)
== END ==
LOC: M LABDRAW1 11:19
PROVIDERS: ATTEND Nurse Practitioner Adult Health
DX: G40.909 Epilepsy, unspecified, not intractable, without status epilepticus (principal); E78.4 Other hyperlipidemia; E55.9 Vitamin D deficiency, unspecified; Z79.899 Other long term (current) drug therapy

== ENCOUNTER → 2017-04-07 | Outpatient (REF) | payer MEDICARE, MEDICAID ==
[2017-04-07 19:16] LABS: BASO % 0.7 % (0.0-1.0); EOS # 0.1 K/mm3 (0.0-0.50); EOS % 2.8 % (0.0-3.0); LARGE UNSTAINED CELL # 0.1 K/mm3 (0.0-0.4); LARGE UNSTAINED CELL % 2.4 % (0.0-4.0); LYMPH # 1.5 K/mm3 (1.5-4.5); MEAN CORPUSCULAR HEMOGLOBIN 33.1 pg (27.0-33.0); MEAN CORPUSCULAR HGB CONC 35.3 g/dl (32.0-36.5); MEAN CORPUSCULAR VOLUME 93.9 fl (80.0-96.0); MONO # 0.4 K/mm3 (0.0-0.8); MONO % 9.9 % (0.0-5.0); NEUTROPHILS % 50.1 % (36.0-66.0); PLATELET COUNT, AUTOMATED 166 k/mm3 (150-450); RED CELL DISTRIBUTION WIDTH 12.6 % (11.5-14.5)
[2017-04-07 19:38] LABS: ALBUMIN 4.6 GM/DL (3.2-5.2); ALBUMIN/GLOBULIN RATIO 1.21 (1.00-1.93); ALKALINE PHOSPHATASE 136 U/L (45-117); ALT/SGPT 22 U/L (12-78); ANION GAP 11 MEQ/L (8-16); AST/SGOT 21 U/L (15-37); BILIRUBIN,TOTAL 0.4 MG/DL (0.2-1.0); BLOOD UREA NITROGEN 18 MG/DL (7-18); CALCIUM LEVEL 9.7 MG/DL (8.5-10.1); CARBON DIOXIDE LEVEL 25 MEQ/L (21-32); CHLORIDE LEVEL 104 MEQ/L (98-107); CREATININE FOR GFR 0.91 MG/DL (0.70-1.30); GLOMERULAR FILTRATION RATE > 60.0 (>56); GLUCOSE, FASTING 73 MG/DL (70-105); POTASSIUM SERUM 4.3 MEQ/L (3.5-5.1); SODIUM LEVEL 140 MEQ/L (136-145); TOTAL PROTEIN 8.4 GM/DL (6.4-8.2)
== END ==
LOC: M LABNEURO 16:50
PROVIDERS: ATTEND Psychiatry & Neurology Neurology
DX: G40.209 Localization-related (focal) (partial) symptomatic epilepsy and epileptic syndromes with complex partial seizures, not intractable, without status epilepticus (principal); G81.11 Spastic hemiplegia affecting right dominant side

== ENCOUNTER → 2017-08-03 | Outpatient (REF) | payer MEDICARE, MEDICAID ==
[2017-08-03 13:28] LABS: BASO % 0.6 % (0.0-1.0); EOS # 0.1 10^3/uL (0.0-0.50); IMMATURE GRANULOCYTE % 0.3 % (0-0); LYMPH # 0.9 10^3/uL (1.5-4.5); LYMPH % 27.2 % (24.0-44.0); MEAN CORPUSCULAR HEMOGLOBIN 33.5 pg (27.0-33.0); MEAN CORPUSCULAR HGB CONC 36.2 g/dl (32.0-36.5); MEAN CORPUSCULAR VOLUME 92.6 fl (80.0-96.0); MONO # 0.4 10^3/uL (0.0-0.8); MONO % 11.2 % (0.0-5.0); NEUTROPHILS # 1.9 10^3/uL (1.8-7.7); NEUTROPHILS % 57.7 % (36.0-66.0); PLATELET COUNT, AUTOMATED 161 10^3/uL (150-450); RED CELL DISTRIBUTION WIDTH 12.4 % (11.5-14.5); WHITE BLOOD COUNT 3.3 10^3/uL (4.0-10.0)
[2017-08-03 14:12] LABS: ALBUMIN 4.3 GM/DL (3.2-5.2); ALBUMIN/GLOBULIN RATIO 1.23 (1.00-1.93); ALKALINE PHOSPHATASE 119 U/L (45-117); ALT/SGPT 26 U/L (12-78); ANION GAP 11 MEQ/L (8-16); AST/SGOT 21 U/L (7-37); BILIRUBIN,TOTAL 0.3 MG/DL (0.2-1.0); BLOOD UREA NITROGEN 19 MG/DL (7-18); CALCIUM LEVEL 8.9 MG/DL (8.5-10.1); CARBON DIOXIDE LEVEL 25 MEQ/L (21-32); CHLORIDE LEVEL 104 MEQ/L (98-107); CHOLESTEROL LEVEL 152 MG/DL (<200); CREATININE FOR GFR 0.95 MG/DL (0.70-1.30); FREE T4 0.85 NG/DL (0.76-1.46); GLOMERULAR FILTRATION RATE > 60.0 (>56); GLUCOSE, FASTING 123 MG/DL (70-105); POTASSIUM SERUM 4.1 MEQ/L (3.5-5.1); SODIUM LEVEL 140 MEQ/L (136-145); TOTAL PROTEIN 7.8 GM/DL (6.4-8.2); TRIGLYCERIDES LEVEL 116 MG/DL (<150)
== END ==
LOC: M LABDRAW1 13:02
PROVIDERS: ATTEND Nurse Practitioner Adult Health
DX: G40.909 Epilepsy, unspecified, not intractable, without status epilepticus (principal); E78.4 Other hyperlipidemia; I10 Essential (primary) hypertension; E78.1 Pure hyperglyceridemia; E55.9 Vitamin D deficiency, unspecified; Z51.81 Encounter for therapeutic drug level monitoring; Z79.899 Other long term (current) drug therapy

== ENCOUNTER → 2017-08-03 | Outpatient (REF) | payer MEDICARE, MEDICAID | LOC: M LAB REF 15:46 | PROVIDERS: ATTEND Physician Assistant Medical | DX: G40.909 Epilepsy, unspecified, not intractable, without status epilepticus (principal); E78.4 Other hyperlipidemia; I10 Essential (primary) hypertension; E78.1 Pure hyperglyceridemia; E55.9 Vitamin D deficiency, unspecified; Z51.81 Encounter for therapeutic drug level monitoring; Z79.899 Other long term (current) drug therapy ==

== ENCOUNTER → 2018-02-10 | Outpatient (REF) | payer MEDICARE, MEDICAID ==
[2018-02-10 13:48] LABS: BASO # 0.1 10^3/uL (0.0-0.2); BASO % 1.3 % (0.0-1.0); EOS # 0.2 10^3/uL (0.0-0.50); EOS % 4.3 % (0.0-3.0); HEMATOCRIT 40.2 % (42.0-52.0); HEMOGLOBIN 14.3 g/dl (13.5-17.5); IMMATURE GRANULOCYTE % 0.3 % (0-3.0); LYMPH # 1.1 10^3/uL (1.5-4.5); LYMPH % 29.9 % (24.0-44.0); MEAN CORPUSCULAR HEMOGLOBIN 32.9 pg (27.0-33.0); MEAN CORPUSCULAR HGB CONC 35.6 g/dl (32.0-36.5); MEAN CORPUSCULAR VOLUME 92.6 fl (80.0-96.0); MONO # 0.5 10^3/uL (0.0-0.8); MONO % 13.3 % (0.0-5.0); NEUTROPHILS # 1.9 10^3/uL (1.8-7.7); NEUTROPHILS % 50.9 % (36.0-66.0); PLATELET COUNT, AUTOMATED 164 10^3/uL (150-450); RED BLOOD COUNT 4.34 10^6/uL (4.30-6.10); RED CELL DISTRIBUTION WIDTH 12.3 % (11.5-14.5); WHITE BLOOD COUNT 3.8 10^3/uL (4.0-10.0)
[2018-02-10 14:02] LABS: TOTAL 25(OH) VITAMIN D 28.2 NG/ML (30.0-100.0)
[2018-02-10 14:04] LABS: ESTIMATED AVERAGE GLUCOSE 91 MG/DL (60-110); HEMOGLOBIN A1c 4.8 %
[2018-02-10 14:09] LABS: ALBUMIN 4.5 GM/DL (3.2-5.2); ALBUMIN/GLOBULIN RATIO 1.36 (1.00-1.93); ALKALINE PHOSPHATASE 124 U/L (45-117); ALT/SGPT 22 U/L (12-78); ANION GAP 9 MEQ/L (8-16); AST/SGOT 16 U/L (7-37); BILIRUBIN,TOTAL 0.4 MG/DL (0.2-1.0); BLOOD UREA NITROGEN 21 MG/DL (7-18); CALCIUM LEVEL 9.1 MG/DL (8.5-10.1); CARBON DIOXIDE LEVEL 27 MEQ/L (21-32); CHLORIDE LEVEL 106 MEQ/L (98-107); CHOLESTEROL LEVEL 176 MG/DL (<200); CHOLESTEROL RISK RATIO 4.888 (<5); CREATININE FOR GFR 0.98 MG/DL (0.70-1.30); FREE T4 0.93 NG/DL (0.76-1.46); GLOMERULAR FILTRATION RATE > 60.0 (>56); GLUCOSE, FASTING 95 MG/DL (70-100); HDL CHOLESTEROL 36 MG/DL (>40); NON-HDL-C 140 MG/DL; PHENYTOIN (DILANTIN) 20.4 UG/ML (10.0-20.0); POTASSIUM SERUM 4.2 MEQ/L (3.5-5.1); SODIUM LEVEL 142 MEQ/L (136-145); TOTAL PROTEIN 7.8 GM/DL (6.4-8.2); TRIGLYCERIDES LEVEL 150 MG/DL (<150)
== END ==
LOC: M LABDRAW1 13:22
DX: G40.909 Epilepsy, unspecified, not intractable, without status epilepticus (principal); E78.4 Other hyperlipidemia; I10 Essential (primary) hypertension; E55.9 Vitamin D deficiency, unspecified; Z79.899 Other long term (current) drug therapy
CPT/HCPCS: 80185

== ENCOUNTER 2018-03-09 09:25 | Outpatient (RCR) | payer MEDICARE, MEDICAID | END 2018-03-15 | LOC: M PT 09:25 | DX: Z51.89 Encounter for other specified aftercare (principal); I69.054 Hemiplegia and hemiparesis following nontraumatic subarachnoid hemorrhage affecting left non-dominant side | CPT/HCPCS: 97112 ==

== ENCOUNTER 2018-03-17 14:24 | Outpatient (RCR) | payer MEDICARE, MEDICAID | END 2018-04-15 | disposition home or self-care (01) | LOC: M PT 14:24 | DX: Z51.89 Encounter for other specified aftercare (principal); I69.054 Hemiplegia and hemiparesis following nontraumatic subarachnoid hemorrhage affecting left non-dominant side; G40.909 Epilepsy, unspecified, not intractable, without status epilepticus; H15.092 Other scleritis, left eye; H40.9 Unspecified glaucoma; K21.9 Gastro-esophageal reflux disease without esophagitis; L40.0 Psoriasis vulgaris; E78.4 Other hyperlipidemia; I10 Essential (primary) hypertension; R60.0 Localized edema | CPT/HCPCS: 97110 ==

== ENCOUNTER 2018-04-19 13:53 | Outpatient (RCR) | payer MEDICARE, MEDICAID | END 2018-05-15 | LOC: M PT 04-21 15:15 | DX: Z51.89 Encounter for other specified aftercare (principal); I69.054 Hemiplegia and hemiparesis following nontraumatic subarachnoid hemorrhage affecting left non-dominant side | CPT/HCPCS: 97110 ==

== ENCOUNTER → 2018-07-26 | Outpatient (REF) | payer MEDICARE, MEDICAID ==
[2018-07-26 10:51] LABS: EOS # 0.1 10^3/uL (0.0-0.50); EOS % 2.9 % (0.0-3.0); HEMATOCRIT 38.9 % (42.0-52.0); HEMOGLOBIN 13.9 g/dl (13.5-17.5); IMMATURE GRANULOCYTE % 0.2 % (0-3.0); LYMPH # 1.3 10^3/uL (1.5-4.5); MEAN CORPUSCULAR HEMOGLOBIN 33.7 pg (27.0-33.0); MEAN CORPUSCULAR HGB CONC 35.7 g/dl (32.0-36.5); MEAN CORPUSCULAR VOLUME 94.2 fl (80.0-96.0); MONO # 0.5 10^3/uL (0.0-0.8); NEUTROPHILS # 2.2 10^3/uL (1.8-7.7); NEUTROPHILS % 52.9 % (36.0-66.0); PLATELET COUNT, AUTOMATED 178 10^3/uL (150-450); RED BLOOD COUNT 4.13 10^6/uL (4.30-6.10); RED CELL DISTRIBUTION WIDTH 12.3 % (11.5-14.5); WHITE BLOOD COUNT 4.2 10^3/uL (4.0-10.0)
[2018-07-26 10:57] LABS: ALBUMIN 4.2 GM/DL (3.2-5.2); ALBUMIN/GLOBULIN RATIO 1.27 (1.00-1.93); ALKALINE PHOSPHATASE 131 U/L (45-117); ALT/SGPT 26 U/L (12-78); ANION GAP 7 MEQ/L (8-16); AST/SGOT 17 U/L (7-37); BILIRUBIN,TOTAL 0.3 MG/DL (0.2-1.0); BLOOD UREA NITROGEN 22 MG/DL (7-18); CALCIUM LEVEL 9.1 MG/DL (8.5-10.1); CARBON DIOXIDE LEVEL 29 MEQ/L (21-32); CHLORIDE LEVEL 105 MEQ/L (98-107); CHOLESTEROL LEVEL 163 MG/DL (<200); CHOLESTEROL RISK RATIO 4.179 (<5); CREATININE FOR GFR 0.93 MG/DL (0.70-1.30); FREE T4 0.87 NG/DL (0.76-1.46); GLOMERULAR FILTRATION RATE > 60.0 (>56); GLUCOSE, FASTING 120 MG/DL (70-100); HDL CHOLESTEROL 39 MG/DL (>40); LDL CHOLESTEROL 101 MG/DL (<100); NON-HDL-C 124 MG/DL; POTASSIUM SERUM 4.3 MEQ/L (3.5-5.1); SODIUM LEVEL 141 MEQ/L (136-145); TOTAL 25(OH) VITAMIN D 30.9 NG/ML (30.0-100.0); TOTAL PROTEIN 7.5 GM/DL (6.4-8.2); TRIGLYCERIDES LEVEL 115 MG/DL (<150)
[2018-07-26 12:42] LABS: ESTIMATED AVERAGE GLUCOSE 97 MG/DL (60-110)
== END ==
LOC: M LABDRAW1 09:20
DX: G40.909 Epilepsy, unspecified, not intractable, without status epilepticus (principal); E78.41 Elevated Lipoprotein(a); E55.9 Vitamin D deficiency, unspecified; R53.83 Other fatigue; I10 Essential (primary) hypertension
CPT/HCPCS: 84443

== ENCOUNTER → 2019-03-21 | Outpatient (REF) | payer MEDICARE, MEDICAID ==
[2019-03-21 13:16] LABS: BASO % 0.8 % (0.0-1.0); EOS # 0.2 10^3/uL (0.0-0.50); EOS % 5.3 % (0.0-3.0); HEMATOCRIT 37.3 % (42.0-52.0); HEMOGLOBIN 13.1 g/dl (13.5-17.5); LYMPH # 1.1 10^3/uL (1.5-4.5); LYMPH % 27.3 % (24.0-44.0); MEAN CORPUSCULAR HEMOGLOBIN 33.2 pg (27.0-33.0); MEAN CORPUSCULAR HGB CONC 35.1 g/dl (32.0-36.5); MEAN CORPUSCULAR VOLUME 94.7 fl (80.0-96.0); MONO # 0.5 10^3/uL (0.0-0.8); NEUTROPHILS # 2.2 10^3/uL (1.8-7.7); NEUTROPHILS % 54.3 % (36.0-66.0); PLATELET COUNT, AUTOMATED 168 10^3/uL (150-450); RED BLOOD COUNT 3.94 10^6/uL (4.30-6.10)
[2019-03-21 13:31] LABS: ALBUMIN 4.1 GM/DL (3.2-5.2); ALT/SGPT 19 U/L (12-78); BILIRUBIN,TOTAL 0.4 MG/DL (0.2-1.0); BLOOD UREA NITROGEN 19 MG/DL (7-18); CALCIUM LEVEL 8.7 MG/DL (8.5-10.1); CARBON DIOXIDE LEVEL 27 MEQ/L (21-32); CHLORIDE LEVEL 108 MEQ/L (98-107); CHOLESTEROL LEVEL 139 MG/DL (<200); CHOLESTEROL RISK RATIO 3.861 (<5); CREATININE FOR GFR 0.91 MG/DL (0.70-1.30); GLOMERULAR FILTRATION RATE > 60.0 (>56); GLUCOSE, FASTING 99 MG/DL (70-100); HDL CHOLESTEROL 36 MG/DL (>40); LDL CHOLESTEROL 71 MG/DL (<100); NON-HDL-C 103 MG/DL; POTASSIUM SERUM 3.8 MEQ/L (3.5-5.1); SODIUM LEVEL 142 MEQ/L (136-145); TOTAL 25(OH) VITAMIN D 33.6 NG/ML (30.0-100.0); TOTAL PROTEIN 7.3 GM/DL (6.4-8.2); TRIGLYCERIDES LEVEL 161 MG/DL (<150)
[2019-03-21 13:44] LABS: HEMOGLOBIN A1c 5.2 %
== END ==
LOC: M LABDRAW1 12:04
PROVIDERS: ATTEND Nurse Practitioner Adult Health
DX: E78.00 Pure hypercholesterolemia, unspecified (principal); K21.9 Gastro-esophageal reflux disease without esophagitis; Z79.899 Other long term (current) drug therapy

== ENCOUNTER → 2019-08-04 | Outpatient (REF) | payer MEDICARE, MEDICAID ==
[~2019-08-04] MED LIST: ASPI-255 PO; ATOR1TAB21 PO; CALTTAB6 PO; CLOT1CRE2; COMB0.2S OU; FURO40TA2 PO; GEMF600T5 PO; KETO0.3S OS; LAMO200T3 PO; LAMO25TA4 PO; METO50TA7 PO; OMEP-218 PO; PHEN100C PO; VITA100T28 PO; VITACAP8 PO
[2019-08-04 10:11] LABS: BASO % 0.5 % (0.0-1.0); EOS # 0.1 10^3/uL (0.0-0.5); EOS % 3.7 % (0.0-3.0); HEMATOCRIT 40.5 % (42.0-52.0); HEMOGLOBIN 13.9 g/dl (13.5-17.5); LYMPH # 1.1 10^3/uL (1.5-5.0); LYMPH % 28.5 % (24.0-44.0); MEAN CORPUSCULAR HEMOGLOBIN 32.2 pg (27.0-33.0); MEAN CORPUSCULAR HGB CONC 34.3 g/dl (32.0-36.5); MEAN CORPUSCULAR VOLUME 93.8 fl (80.0-96.0); MONO # 0.4 10^3/uL (0.0-0.8); MONO % 11.6 % (0.0-5.0); NEUTROPHILS # 2.1 10^3/uL (1.5-8.5); NEUTROPHILS % 55.4 % (36.0-66.0); PLATELET COUNT, AUTOMATED 155 10^3/uL (150-450); RED BLOOD COUNT 4.32 10^6/uL (4.30-6.10); WHITE BLOOD COUNT 3.8 10^3/uL (4.0-10.0)
[2019-08-04 10:57] LABS: ALT/SGPT 22 U/L (12-78); BILIRUBIN,TOTAL 0.3 MG/DL (0.2-1.0); BLOOD UREA NITROGEN 16 MG/DL (7-18); CALCIUM LEVEL 8.9 MG/DL (8.8-10.2); CARBON DIOXIDE LEVEL 23 MEQ/L (21-32); CHLORIDE LEVEL 108 MEQ/L (98-107); CHOLESTEROL LEVEL 145 MG/DL (<200); CHOLESTEROL RISK RATIO 3.815 (<5); CREATININE FOR GFR 0.85 MG/DL (0.70-1.30); GLOMERULAR FILTRATION RATE > 60.0 (>49); GLUCOSE, FASTING 101 MG/DL (70-100); HDL CHOLESTEROL 38 MG/DL (>40); LDL CHOLESTEROL 80 MG/DL (<100); NON-HDL-C 107 MG/DL; POTASSIUM SERUM 3.8 MEQ/L (3.5-5.1); SODIUM LEVEL 141 MEQ/L (136-145); TOTAL 25(OH) VITAMIN D 38.8 NG/ML (30.0-100.0); TOTAL PROTEIN 7.5 GM/DL (6.4-8.2); TRIGLYCERIDES LEVEL 135 MG/DL (<150)
[2019-08-05 15:17] LABS: PSA TOTAL 3.6 ng/mL (0.0-4.0)
== END ==
LOC: M LABDRAW1 07:33
PROVIDERS: ATTEND Nurse Practitioner Adult Health
DX: E78.00 Pure hypercholesterolemia, unspecified (principal); K21.9 Gastro-esophageal reflux disease without esophagitis; Z79.899 Other long term (current) drug therapy; E55.9 Vitamin D deficiency, unspecified; G40.909 Epilepsy, unspecified, not intractable, without status epilepticus; Z12.5 Encounter for screening for malignant neoplasm of prostate

== ENCOUNTER → 2020-02-20 | Outpatient (CLI) | payer MEDICARE, MEDICAID ==
[~2020-02-20] MED LIST changes: -CLOT1CRE2; +CLOT1CRE56
[2020-02-20 11:44] LABS: HEMATOCRIT 41.1 % (42.0-52.0); HEMOGLOBIN 14.3 g/dl (13.5-17.5); MEAN CORPUSCULAR HEMOGLOBIN 32.5 pg (27.0-33.0); MEAN CORPUSCULAR HGB CONC 34.8 g/dl (32.0-36.5); MEAN CORPUSCULAR VOLUME 93.4 fl (80.0-96.0); PLATELET COUNT, AUTOMATED 148 10^3/uL (150-450)
[2020-02-20 12:15] LABS: ALBUMIN 4.3 GM/DL (3.2-5.2); ALT/SGPT 21 U/L (12-78); BILIRUBIN,TOTAL 0.3 MG/DL (0.2-1.0); BLOOD UREA NITROGEN 15 MG/DL (7-18); CALCIUM LEVEL 9.2 MG/DL (8.8-10.2); CARBON DIOXIDE LEVEL 28 MEQ/L (21-32); CHLORIDE LEVEL 105 MEQ/L (98-107); CHOLESTEROL LEVEL 175 MG/DL (<200); CHOLESTEROL RISK RATIO 4.605 (<5); CREATININE FOR GFR 0.81 MG/DL (0.70-1.30); GLOMERULAR FILTRATION RATE > 60.0 (>49); GLUCOSE, FASTING 97 MG/DL (70-100); HDL CHOLESTEROL 38 MG/DL (>40); LDL CHOLESTEROL 115 MG/DL (<100); NON-HDL-C 137 MG/DL; SODIUM LEVEL 139 MEQ/L (136-145); TOTAL 25(OH) VITAMIN D 36.5 NG/ML (30.0-100.0); TOTAL PROTEIN 7.8 GM/DL (6.4-8.2); TRIGLYCERIDES LEVEL 108 MG/DL (<150)
[2020-02-20 19:37] LABS: HEMOGLOBIN A1c 5.2 %
== END ==
LOC: M PLALAB 08:01
PROVIDERS: ATTEND Nurse Practitioner Adult Health
DX: E78.00 Pure hypercholesterolemia, unspecified (principal); K21.9 Gastro-esophageal reflux disease without esophagitis; Z79.899 Other long term (current) drug therapy; E55.9 Vitamin D deficiency, unspecified

== ENCOUNTER → 2020-08-22 | Outpatient (CLI) | payer MEDICARE, MEDICAID ==
[2020-08-22 10:39] LABS: HEMATOCRIT 40.1 % (42.0-52.0); HEMOGLOBIN 13.9 g/dl (13.5-17.5); MEAN CORPUSCULAR HEMOGLOBIN 32.6 pg (27.0-33.0); MEAN CORPUSCULAR HGB CONC 34.7 g/dl (32.0-36.5); MEAN CORPUSCULAR VOLUME 94.1 fl (80.0-96.0); PLATELET COUNT, AUTOMATED 162 10^3/uL (150-450); RED BLOOD COUNT 4.26 10^6/uL (4.30-6.10); WHITE BLOOD COUNT 4.1 10^3/uL (4.0-10.0)
[2020-08-22 11:17] LABS: HEMOGLOBIN A1c 4.7 %
[2020-08-22 11:25] LABS: ALBUMIN 4.4 GM/DL (3.2-5.2); ALT/SGPT 20 U/L (12-78); BILIRUBIN,TOTAL 0.4 MG/DL (0.2-1.0); BLOOD UREA NITROGEN 13 MG/DL (7-18); CALCIUM LEVEL 9.2 MG/DL (8.8-10.2); CARBON DIOXIDE LEVEL 29 MEQ/L (21-32); CHLORIDE LEVEL 106 MEQ/L (98-107); CHOLESTEROL LEVEL 172 MG/DL (<200); CHOLESTEROL RISK RATIO 3.659 (<5); CREATININE FOR GFR 0.86 MG/DL (0.70-1.30); GLOMERULAR FILTRATION RATE > 60.0 (>49); GLUCOSE, FASTING 99 MG/DL (70-100); HDL CHOLESTEROL 47 MG/DL (>40); LDL CHOLESTEROL 105 MG/DL (<100); NON-HDL-C 125 MG/DL; SODIUM LEVEL 140 MEQ/L (136-145); TOTAL PROTEIN 7.6 GM/DL (6.4-8.2); TRIGLYCERIDES LEVEL 100 MG/DL (<150)
[2020-08-22 11:47] LABS: TOTAL 25(OH) VITAMIN D 40.5 NG/ML (30.0-100.0)
== END ==
LOC: M PLALAB 08:02
PROVIDERS: ATTEND Nurse Practitioner Adult Health
DX: Z00.01 Encounter for general adult medical examination with abnormal findings (principal); K21.9 Gastro-esophageal reflux disease without esophagitis; E78.00 Pure hypercholesterolemia, unspecified; E55.9 Vitamin D deficiency, unspecified; Z79.899 Other long term (current) drug therapy

== ENCOUNTER → 2020-10-22 | Outpatient (CLI) | payer MEDICARE, MEDICAID ==
--- NOTE | 2020-10-22 11:59 | REP ---
INDICATION: PAIN COMPARISON: None. TECHNIQUE: AP, lateral, bilateral oblique views left hand. FINDINGS: The osseous structures and joint spaces are intact and essentially age-appropriate. No overt osteoarthritic or inflammatory arthritic changes are appreciated. No evidence for acute or healed injury. No subcutaneous emphysema or foreign body. IMPRESSION: Mild generalized age-related changes. <Electronically signed by Dave Griffin > 10/22/20 [id number]
== END ==
LOC: M WUC 11:35
DX: M79.642 Pain in left hand (principal)

== ENCOUNTER → 2021-01-23 | Outpatient (CLI) | payer MEDICARE, MEDICAID ==
[2021-01-23 11:12] LABS: BASO % 0.7 % (0.0-1.0); EOS # 0.2 10^3/uL (0.0-0.5); EOS % 4.8 % (0.0-3.0); HEMATOCRIT 40.3 % (42.0-52.0); LYMPH % 24.7 % (24.0-44.0); MEAN CORPUSCULAR HEMOGLOBIN 32.7 pg (27.0-33.0); MEAN CORPUSCULAR HGB CONC 34.7 g/dl (32.0-36.5); MEAN CORPUSCULAR VOLUME 94.2 fl (80.0-96.0); MONO # 0.5 10^3/uL (0.0-0.8); MONO % 11.4 % (2.0-8.0); NEUTROPHILS # 2.4 10^3/uL (1.5-8.5); NEUTROPHILS % 58.2 % (36.0-66.0); PLATELET COUNT, AUTOMATED 175 10^3/uL (150-450); RED BLOOD COUNT 4.28 10^6/uL (4.30-6.10); WHITE BLOOD COUNT 4.1 10^3/uL (4.0-10.0)
[2021-01-23 11:13] LABS: HEMATOCRIT 40.5 % (42.0-52.0); MEAN CORPUSCULAR HEMOGLOBIN 32.5 pg (27.0-33.0); MEAN CORPUSCULAR HGB CONC 34.6 g/dl (32.0-36.5); PLATELET COUNT, AUTOMATED 168 10^3/uL (150-450); RED BLOOD COUNT 4.31 10^6/uL (4.30-6.10); WHITE BLOOD COUNT 4.1 10^3/uL (4.0-10.0)
[2021-01-23 13:28] LABS: ALBUMIN 4.2 GM/DL (3.2-5.2); ALT/SGPT 17 U/L (12-78); BILIRUBIN,TOTAL 0.5 MG/DL (0.2-1.0); BLOOD UREA NITROGEN 16 MG/DL (7-18); CALCIUM LEVEL 8.8 MG/DL (8.8-10.2); CARBON DIOXIDE LEVEL 27 MEQ/L (21-32); CHLORIDE LEVEL 105 MEQ/L (98-107); CREATININE FOR GFR 0.87 MG/DL (0.70-1.30); GLOMERULAR FILTRATION RATE > 60.0 (>49); GLUCOSE, FASTING 111 MG/DL (70-100); PHENYTOIN (DILANTIN) 24.7 UG/ML (10.0-20.0); POTASSIUM SERUM 3.8 MEQ/L (3.5-5.1); SODIUM LEVEL 141 MEQ/L (136-145); TOTAL PROTEIN 8.1 GM/DL (6.4-8.2)
[2021-01-23 15:33] LABS: ALBUMIN 4.2 GM/DL (3.2-5.2); ALT/SGPT 17 U/L (12-78); BILIRUBIN,TOTAL 0.4 MG/DL (0.2-1.0); BLOOD UREA NITROGEN 17 MG/DL (7-18); CALCIUM LEVEL 9.5 MG/DL (8.8-10.2); CARBON DIOXIDE LEVEL 26 MEQ/L (21-32); CHLORIDE LEVEL 105 MEQ/L (98-107); CREATININE FOR GFR 0.79 MG/DL (0.70-1.30); GLOMERULAR FILTRATION RATE > 60.0 (>49); GLUCOSE, FASTING 109 MG/DL (70-100); POTASSIUM SERUM 3.7 MEQ/L (3.5-5.1); SODIUM LEVEL 140 MEQ/L (136-145); TOTAL PROTEIN 8.1 GM/DL (6.4-8.2)
[2021-01-23 18:31] LABS: HEMOGLOBIN A1c 4.8 %
== END ==
LOC: M PLALAB 07:53
PROVIDERS: ATTEND Psychiatry & Neurology Neurology
DX: K21.9 Gastro-esophageal reflux disease without esophagitis (principal); G40.909 Epilepsy, unspecified, not intractable, without status epilepticus; E78.00 Pure hypercholesterolemia, unspecified; E55.9 Vitamin D deficiency, unspecified; Z79.899 Other long term (current) drug therapy

== ENCOUNTER → 2021-05-12 | Outpatient (CLI) | payer MEDICARE, MEDICAID ==
[2021-05-12 18:37] LABS: BASO % 0.7 % (0.0-1.0); EOS # 0.1 10^3/uL (0.0-0.5); EOS % 2.8 % (0.0-3.0); HEMATOCRIT 40.9 % (42.0-52.0); HEMOGLOBIN 14.7 g/dl (13.5-17.5); LYMPH % 23.7 % (24.0-44.0); MEAN CORPUSCULAR HEMOGLOBIN 33.1 pg (27.0-33.0); MEAN CORPUSCULAR HGB CONC 35.9 g/dl (32.0-36.5); MEAN CORPUSCULAR VOLUME 92.1 fl (80.0-96.0); MONO # 0.5 10^3/uL (0.0-0.8); MONO % 12.2 % (2.0-8.0); NEUTROPHILS # 2.6 10^3/uL (1.5-8.5); NEUTROPHILS % 60.4 % (36.0-66.0); PLATELET COUNT, AUTOMATED 184 10^3/uL (150-450); RED BLOOD COUNT 4.44 10^6/uL (4.30-6.10); WHITE BLOOD COUNT 4.4 10^3/uL (4.0-10.0)
[2021-05-12 19:14] LABS: ALBUMIN 4.2 GM/DL (3.2-5.2); ALT/SGPT 20 U/L (12-78); BILIRUBIN,TOTAL 0.4 MG/DL (0.2-1.0); BLOOD UREA NITROGEN 15 MG/DL (7-18); CALCIUM LEVEL 9.8 MG/DL (8.8-10.2); CARBON DIOXIDE LEVEL 26 MEQ/L (21-32); CHLORIDE LEVEL 105 MEQ/L (98-107); CREATININE FOR GFR 0.81 MG/DL (0.70-1.30); GLOMERULAR FILTRATION RATE > 60.0 (>49); GLUCOSE, FASTING 114 MG/DL (70-100); PHENYTOIN (DILANTIN) 18.6 UG/ML (10.0-20.0); POTASSIUM SERUM 3.9 MEQ/L (3.5-5.1); SODIUM LEVEL 138 MEQ/L (136-145)
== END ==
LOC: M PLALAB 14:39
PROVIDERS: ATTEND Psychiatry & Neurology Neurology
DX: R56.9 Unspecified convulsions (principal)

== ENCOUNTER → 2021-05-29 | Outpatient (CLI) | payer MEDICARE, MEDICAID ==
[2021-05-29 10:43] LABS: HEMATOCRIT 40.2 % (42.0-52.0); HEMOGLOBIN 14.2 g/dl (13.5-17.5); MEAN CORPUSCULAR HEMOGLOBIN 32.9 pg (27.0-33.0); MEAN CORPUSCULAR HGB CONC 35.3 g/dl (32.0-36.5); MEAN CORPUSCULAR VOLUME 93.3 fl (80.0-96.0); PLATELET COUNT, AUTOMATED 166 10^3/uL (150-450); RED BLOOD COUNT 4.31 10^6/uL (4.30-6.10); WHITE BLOOD COUNT 4.1 10^3/uL (4.0-10.0)
[2021-05-29 10:58] LABS: HEMOGLOBIN A1c 4.8 %
[2021-05-29 11:22] LABS: ALBUMIN 4.1 GM/DL (3.2-5.2); ALT/SGPT 17 U/L (12-78); BILIRUBIN,TOTAL 0.5 MG/DL (0.2-1.0); BLOOD UREA NITROGEN 13 MG/DL (7-18); CALCIUM LEVEL 8.9 MG/DL (8.8-10.2); CARBON DIOXIDE LEVEL 29 MEQ/L (21-32); CHLORIDE LEVEL 104 MEQ/L (98-107); CHOLESTEROL LEVEL 160 MG/DL (<200); CHOLESTEROL RISK RATIO 3.809 (<5); CREATININE FOR GFR 0.87 MG/DL (0.70-1.30); GLOMERULAR FILTRATION RATE > 60.0 (>49); GLUCOSE, FASTING 95 MG/DL (70-100); HDL CHOLESTEROL 42 MG/DL (>40); LDL CHOLESTEROL 90 MG/DL (<100); NON-HDL-C 118 MG/DL; POTASSIUM SERUM 3.8 MEQ/L (3.5-5.1); SODIUM LEVEL 139 MEQ/L (136-145); TOTAL PROTEIN 8.2 GM/DL (6.4-8.2); TRIGLYCERIDES LEVEL 142 MG/DL (<150)
[2021-05-29 11:30] LABS: TOTAL 25(OH) VITAMIN D 38.2 NG/ML (30.0-100.0)
== END ==
LOC: M PLALAB 07:53
PROVIDERS: ATTEND Nurse Practitioner Family
DX: Z00.01 Encounter for general adult medical examination with abnormal findings (principal); Z13.220 Encounter for screening for lipoid disorders; I10 Essential (primary) hypertension; E78.00 Pure hypercholesterolemia, unspecified; Z79.899 Other long term (current) drug therapy; E55.9 Vitamin D deficiency, unspecified

== ENCOUNTER → 2021-12-01 | Outpatient (CLI) | payer MEDICARE, MEDICAID ==
[~2021-12-01] MED LIST changes: +OMEP-173 PO; -OMEP-218 PO
[2021-12-01 10:18] LABS: HEMOGLOBIN 13.6 g/dl (13.5-17.5); MEAN CORPUSCULAR HEMOGLOBIN 33.1 pg (27.0-33.0); MEAN CORPUSCULAR HGB CONC 35.8 g/dl (32.0-36.5); MEAN CORPUSCULAR VOLUME 92.5 fl (80.0-96.0); PLATELET COUNT, AUTOMATED 200 10^3/uL (150-450); RED BLOOD COUNT 4.11 10^6/uL (4.30-6.10); WHITE BLOOD COUNT 4.7 10^3/uL (4.0-10.0)
[2021-12-01 10:38] LABS: HEMOGLOBIN A1c 4.8 %
[2021-12-01 10:58] LABS: ALBUMIN 4.3 GM/DL (3.2-5.2); ALT/SGPT 21 U/L (12-78); BILIRUBIN,TOTAL 0.5 MG/DL (0.2-1.0); BLOOD UREA NITROGEN 13 MG/DL (7-18); CALCIUM LEVEL 9.4 MG/DL (8.8-10.2); CARBON DIOXIDE LEVEL 26 MEQ/L (21-32); CHLORIDE LEVEL 105 MEQ/L (98-107); CHOLESTEROL LEVEL 170 MG/DL (<200); CHOLESTEROL RISK RATIO 3.953 (<5); CREATININE FOR GFR 0.76 MG/DL (0.70-1.30); GLOMERULAR FILTRATION RATE > 60.0 (>49); GLUCOSE, FASTING 93 MG/DL (70-100); HDL CHOLESTEROL 43 MG/DL (>40); LDL CHOLESTEROL 106 MG/DL (<100); NON-HDL-C 127 MG/DL; POTASSIUM SERUM 4.4 MEQ/L (3.5-5.1); SODIUM LEVEL 139 MEQ/L (136-145); TOTAL 25(OH) VITAMIN D 36.2 NG/ML (30.0-100.0); TOTAL PROTEIN 7.8 GM/DL (6.4-8.2); TRIGLYCERIDES LEVEL 105 MG/DL (<150)
== END ==
LOC: M PLALAB 08:11
PROVIDERS: ATTEND Nurse Practitioner Family
DX: I10 Essential (primary) hypertension (principal); Z12.5 Encounter for screening for malignant neoplasm of prostate
CPT/HCPCS: 36415; 80053; 80061; 82306; 83036; 84443; 85027; G0103

== ENCOUNTER → 2022-03-20 | Outpatient (CLI) | payer MEDICARE, MEDICAID ==
[2022-03-20 16:04] LABS: BASO % 0.7 % (0.0-1.0); EOS # 0.2 10^3/uL (0.0-0.5); EOS % 4.8 % (0.0-3.0); HEMATOCRIT 39.5 % (42.0-52.0); HEMOGLOBIN 14.1 g/dl (13.5-17.5); LYMPH # 1.3 10^3/uL (1.5-5.0); LYMPH % 30.3 % (24.0-44.0); MEAN CORPUSCULAR HEMOGLOBIN 33.3 pg (27.0-33.0); MEAN CORPUSCULAR HGB CONC 35.7 g/dl (32.0-36.5); MEAN CORPUSCULAR VOLUME 93.2 fl (80.0-96.0); MONO # 0.4 10^3/uL (0.0-0.8); MONO % 10.1 % (2.0-8.0); NEUTROPHILS # 2.2 10^3/uL (1.5-8.5); NEUTROPHILS % 53.9 % (36.0-66.0); PLATELET COUNT, AUTOMATED 169 10^3/uL (150-450); RED BLOOD COUNT 4.24 10^6/uL (4.30-6.10); WHITE BLOOD COUNT 4.2 10^3/uL (4.0-10.0)
[2022-03-20 16:44] LABS: ALBUMIN 4.2 GM/DL (3.2-5.2); ALT/SGPT 19 U/L (12-78); BILIRUBIN,TOTAL 0.3 MG/DL (0.2-1.0); BLOOD UREA NITROGEN 20 MG/DL (7-18); CALCIUM LEVEL 9.3 MG/DL (8.8-10.2); CARBON DIOXIDE LEVEL 26 MEQ/L (21-32); CHLORIDE LEVEL 104 MEQ/L (98-107); CREATININE FOR GFR 0.84 MG/DL (0.70-1.30); GLOMERULAR FILTRATION RATE > 60.0 (>49); GLUCOSE, FASTING 125 MG/DL (70-100); PHENYTOIN (DILANTIN) 23.5 UG/ML (10.0-20.0); POTASSIUM SERUM 3.8 MEQ/L (3.5-5.1); SODIUM LEVEL 138 MEQ/L (136-145); TOTAL PROTEIN 7.9 GM/DL (6.4-8.2)
== END ==
LOC: M PLALAB 13:14
PROVIDERS: ATTEND Psychiatry & Neurology Neurology
DX: R56.9 Unspecified convulsions (principal)

== ENCOUNTER 2022-06-09 04:53 | Emergency (ER) | payer MEDICARE, MEDICAID ==
[~2022-06-09] VITALS: Ht 177.8 cm; Wt 84.6 kg
[2022-06-09] MEDS ORDERED: ACETAMINOPHEN TAB 650MG DOSE (2X325MG) PO ONE (06:00)
[2022-06-09] MEDS ORDERED: ONDANSETRON 4MG ORAL DISINTEGRATING TAB PO ONE (06:00)
[2022-06-09 07:23] VITALS: BP 154/100
== END 2022-06-09 07:37 | disposition home or self-care (01) ==
LOC: M ED 04:53 → EDBD 04:53 → M ED 07:37
DX: S00.83XA Contusion of other part of head, initial encounter (principal); W01.0XXA Fall on same level from slipping, tripping and stumbling without subsequent striking against object, initial encounter; Y92.099 Unspecified place in other non-institutional residence as the place of occurrence of the external cause; R56.9 Unspecified convulsions; Z86.73 Personal history of transient ischemic attack (TIA), and cerebral infarction without residual deficits; Z79.82 Long term (current) use of aspirin; Z79.899 Other long term (current) drug therapy

== ENCOUNTER → 2022-06-10 | Outpatient (CLI) | payer MEDICARE, MEDICAID ==
[2022-06-10 14:10] LABS: HEMATOCRIT 39.3 % (42.0-52.0); HEMOGLOBIN 13.5 g/dl (13.5-17.5); MEAN CORPUSCULAR HEMOGLOBIN 33.1 pg (27.0-33.0); MEAN CORPUSCULAR HGB CONC 34.4 g/dl (32.0-36.5); MEAN CORPUSCULAR VOLUME 96.3 fl (80.0-96.0); PLATELET COUNT, AUTOMATED 184 10^3/uL (150-450); RED BLOOD COUNT 4.08 10^6/uL (4.30-6.10); WHITE BLOOD COUNT 5.3 10^3/uL (4.0-10.0)
[2022-06-10 17:06] LABS: ALBUMIN 4.2 GM/DL (3.2-5.2); ALT/SGPT 20 U/L (12-78); BILIRUBIN,TOTAL 0.5 MG/DL (0.2-1.0); BLOOD UREA NITROGEN 28 MG/DL (7-18); CARBON DIOXIDE LEVEL 25 MEQ/L (21-32); CHLORIDE LEVEL 105 MEQ/L (98-107); CHOLESTEROL LEVEL 158 MG/DL (<200); CHOLESTEROL RISK RATIO 3.434 (<5); CREATININE FOR GFR 1.06 MG/DL (0.70-1.30); GLOMERULAR FILTRATION RATE > 60.0 (>49); GLUCOSE, FASTING 111 MG/DL (70-100); HDL CHOLESTEROL 46 MG/DL (>40); LDL CHOLESTEROL 91 MG/DL (<100); NON-HDL-C 112 MG/DL; PHENYTOIN (DILANTIN) 23.8 UG/ML (10.0-20.0); POTASSIUM SERUM 4.2 MEQ/L (3.5-5.1); SODIUM LEVEL 139 MEQ/L (136-145); TOTAL PROTEIN 7.6 GM/DL (6.4-8.2); TRIGLYCERIDES LEVEL 105 MG/DL (<150)
[2022-06-10 18:41] LABS: TOTAL 25(OH) VITAMIN D 38.8 NG/ML (30.0-100.0)
[2022-06-10 20:21] LABS: HEMOGLOBIN A1c 4.9 %
== END ==
LOC: M PLALAB 08:24
PROVIDERS: ATTEND Nurse Practitioner Family
DX: I10 Essential (primary) hypertension (principal); Z79.899 Other long term (current) drug therapy

== ENCOUNTER 2022-10-10 12:41 | Emergency (ER) | payer MEDICARE, MEDICAID ==
[~2022-10-10] VITALS: Ht 167.6 cm; Wt 84.6 kg
[2022-10-10] MEDS ORDERED: lamoTRIgine 100MG TAB PO ONE (14:30)
[2022-10-10] MEDS ORDERED: lamoTRIgine 25MG TAB PO ONE (14:30)
[2022-10-10 14:34] LABS: BASO % 0.4 % (0.0-1.0); EOS # 0.3 10^3/uL (0.0-0.5); EOS % 3.7 % (0.0-3.0); HEMOGLOBIN 13.7 g/dl (13.5-17.5); LYMPH # 1.3 10^3/uL (1.5-5.0); LYMPH % 16.6 % (24.0-44.0); MEAN CORPUSCULAR HEMOGLOBIN 32.9 pg (27.0-33.0); MEAN CORPUSCULAR HGB CONC 35.1 g/dl (32.0-36.5); MEAN CORPUSCULAR VOLUME 93.5 fl (80.0-96.0); MONO # 0.7 10^3/uL (0.0-0.8); MONO % 9.4 % (2.0-8.0); NEUTROPHILS # 5.5 10^3/uL (1.5-8.5); NEUTROPHILS % 69.5 % (36.0-66.0); PLATELET COUNT, AUTOMATED 187 10^3/uL (150-450); RED BLOOD COUNT 4.17 10^6/uL (4.30-6.10); WHITE BLOOD COUNT 7.9 10^3/uL (4.0-10.0)
[2022-10-10 15:00] LABS: ALBUMIN 3.9 G/DL (3.2-5.2); ALKALINE PHOSPHATASE 143 U/L (46-116); ALT/SGPT 18 U/L (7.0-40); AST/SGOT 26 U/L (<34); BILIRUBIN,DIRECT < 0.1 MG/DL (<0.4); BILIRUBIN,TOTAL 0.3 MG/DL (0.3-1.2); BLOOD UREA NITROGEN 25 MG/DL (9-23); CALCIUM LEVEL 9.6 MG/DL (8.3-10.6); CARBON DIOXIDE LEVEL 29 MMOL/L (20-31); CHLORIDE LEVEL 104 MMOL/L (98-107); CREATININE FOR GFR 0.82 MG/DL (0.70-1.30); GLOMERULAR FILTRATION RATE > 60.0 (>49); GLUCOSE, FASTING 79 MG/DL (74-106); POTASSIUM SERUM 4.2 MMOL/L (3.5-5.1); SODIUM LEVEL 140 MMOL/L (136-145); THYROID STIMULATING HORMONE 2.823 uIU/ML (0.55-4.78); TOTAL PROTEIN 7.4 G/DL (5.7-8.2)
[2022-10-10 15:04] LABS: PHENYTOIN (DILANTIN) 25.8 UG/ML (10.0-20.0)
[2022-10-10 16:30] VITALS: BP 138/73
[2022-10-11] MEDS ORDERED: MIRA3350 PO (12:19)
== END 2022-10-10 16:55 | disposition home or self-care (01) ==
LOC: EDBD 12:41 → M ED 12:41
DX: R51.9 Headache, unspecified (principal); I10 Essential (primary) hypertension; E78.5 Hyperlipidemia, unspecified; G40.909 Epilepsy, unspecified, not intractable, without status epilepticus; Z86.73 Personal history of transient ischemic attack (TIA), and cerebral infarction without residual deficits; Z79.82 Long term (current) use of aspirin; Z79.899 Other long term (current) drug therapy

== ENCOUNTER 2022-10-11 09:54 | Emergency (ER) | payer MEDICARE, MEDICAID ==
[~2022-10-11] VITALS: Ht 167.6 cm; Wt 81.1 kg
[2022-10-11] MEDS ORDERED: NS 1,000 ML IV ONE (10:15)
[2022-10-11 10:31] LABS: BASO % 0.3 % (0.0-1.0); EOS # 0.2 10^3/uL (0.0-0.5); HEMATOCRIT 38.3 % (42.0-52.0); HEMOGLOBIN 13.6 g/dl (13.5-17.5); LYMPH % 15.3 % (24.0-44.0); MEAN CORPUSCULAR HGB CONC 35.5 g/dl (32.0-36.5); MONO # 0.6 10^3/uL (0.0-0.8); MONO % 8.9 % (2.0-8.0); NEUTROPHILS # 4.8 10^3/uL (1.5-8.5); NEUTROPHILS % 71.9 % (36.0-66.0); PLATELET COUNT, AUTOMATED 187 10^3/uL (150-450); RED BLOOD COUNT 4.12 10^6/uL (4.30-6.10); WHITE BLOOD COUNT 6.7 10^3/uL (4.0-10.0)
[2022-10-11] MEDS ORDERED: ISOVUE-370 76% 100ML VIAL As Ordered ONE (11:02)
[2022-10-11 11:06] LABS: ALBUMIN 3.9 G/DL (3.2-5.2); BILIRUBIN,DIRECT 0.1 MG/DL (<0.4); BILIRUBIN,TOTAL 0.5 MG/DL (0.3-1.2); TOTAL PROTEIN 7.2 G/DL (5.7-8.2)
[2022-10-11] MEDS ORDERED: MIRA3350 PO (12:19)
[2022-10-11 13:20] VITALS: BP 157/81
== END 2022-10-11 13:40 | disposition home or self-care (01) ==
LOC: EDBD 09:54 → M ED 09:54
DX: K59.00 Constipation, unspecified (principal); I10 Essential (primary) hypertension; K21.9 Gastro-esophageal reflux disease without esophagitis; Z86.73 Personal history of transient ischemic attack (TIA), and cerebral infarction without residual deficits; Z79.82 Long term (current) use of aspirin; Z79.899 Other long term (current) drug therapy
CPT/HCPCS: 74177; 80047; 80076; 81001; 83605; 83690; 85025; 93005; 96360; 99285; Q9967

== ENCOUNTER 2022-10-15 17:20 | Inpatient (IN) | payer MEDICARE, MEDICAID ==
[~2022-10-15] VITALS: Ht 167.6 cm; Wt 77.6 kg
[~2022-10-15 17:20] MED LIST changes: +MIRA3350 PO
[2022-10-15 18:18] LABS: BASO % 0.6 % (0.0-1.0); EOS # 0.3 10^3/uL (0.0-0.5); EOS % 5.6 % (0.0-3.0); HEMATOCRIT 36.2 % (42.0-52.0); HEMOGLOBIN 13.1 g/dl (13.5-17.5); LYMPH # 1.5 10^3/uL (1.5-5.0); LYMPH % 30.3 % (24.0-44.0); MEAN CORPUSCULAR HEMOGLOBIN 33.5 pg (27.0-33.0); MEAN CORPUSCULAR HGB CONC 36.2 g/dl (32.0-36.5); MEAN CORPUSCULAR VOLUME 92.6 fl (80.0-96.0); MONO # 0.5 10^3/uL (0.0-0.8); MONO % 10.5 % (2.0-8.0); NEUTROPHILS # 2.6 10^3/uL (1.5-8.5); NEUTROPHILS % 52.8 % (36.0-66.0); PLATELET COUNT, AUTOMATED 165 10^3/uL (150-450); RED BLOOD COUNT 3.91 10^6/uL (4.30-6.10); WHITE BLOOD COUNT 4.9 10^3/uL (4.0-10.0)
[2022-10-15 19:14] LABS: ALBUMIN 3.9 G/DL (3.2-5.2); ALKALINE PHOSPHATASE 142 U/L (46-116); ALT/SGPT 19 U/L (7.0-40); AST/SGOT 23 U/L (<34); BILIRUBIN,DIRECT 0.1 MG/DL (<0.4); BILIRUBIN,TOTAL 0.3 MG/DL (0.3-1.2); BLOOD UREA NITROGEN 18 MG/DL (9-23); CALCIUM LEVEL 9.5 MG/DL (8.3-10.6); CARBON DIOXIDE LEVEL 29 MMOL/L (20-31); CHLORIDE LEVEL 102 MMOL/L (98-107); CREATININE FOR GFR 0.72 MG/DL (0.70-1.30); GLOMERULAR FILTRATION RATE > 60.0 (>49); GLUCOSE, FASTING 94 MG/DL (74-106); SODIUM LEVEL 138 MMOL/L (136-145)
[2022-10-15 19:26] LABS: PHENYTOIN (DILANTIN) 20.4 UG/ML (10.0-20.0)
[2022-10-15 19:28] LABS: TOTAL PROTEIN 7.1 G/DL (5.7-8.2)
[2022-10-15 20:30] LABS: RSV AMPLIFICATION NEGATIVE (NEGATIVE)
[2022-10-15 21:03] LABS: APPEARANCE, URINE CLEAR (CLEAR); BACTERIA, URINE AUTO 1+ (NEGATIVE); BILIRUBIN, URINE AUTO NEGATIVE (NEGATIVE); BLOOD, URINE BLOOD NEGATIVE (NEGATIVE); COLOR, URINE STRAW (YELLOW); GLUCOSE, URINE (UA) AUTO NEGATIVE (NEGATIVE); KETONE, URINE AUTO NEGATIVE (NEGATIVE); LEUKOCYTE ESTERASE, URINE AUTO NEGATIVE (NEGATIVE); MUCUS, URINE SMALL (NEGATIVE); NITRITE, URINE AUTO NEGATIVE (NEGATIVE); PROTEIN, URINE AUTO NEGATIVE (NEGATIVE); RBC, URINE AUTO 2 /HPF (0-3); SPECIFIC GRAVITY URINE AUTO 1.006 (1.002-1.035); SQUAMOUS EPITHELIAL CELL UR AU 0 /HPF (0-6); UROBILINOGEN, URINE AUTO 0.2 mg/dL (0.0-2.0); WBC, URINE AUTO 1 /HPF (0-3)
[2022-10-15] MEDS ORDERED: ACETAMINOPHEN TAB 650MG DOSE (2X325MG) PO PRN (21:30)
[2022-10-15] MEDS ORDERED: MOM 30ML SUSPENSION UDC PO PRN (21:30)
[2022-10-15] MEDS ORDERED: CLOT1CRE27 TOP (22:54)
[2022-10-15] MEDS ORDERED: OYST500T92 PO (22:54)
[2022-10-15] MEDS ORDERED: EQL50TAB2 PO (22:54)
[2022-10-15] MEDS ORDERED: MELO15TA28 PO (22:54)
[2022-10-15] MEDS ORDERED: BACL10TA2 PO (22:54)
[2022-10-15] MEDS ORDERED: LOPI600T PO (22:54)
[2022-10-15] MEDS ORDERED: PHEN100C PO (22:54)
[2022-10-15] MEDS ORDERED: MIRA1POW3 PO (22:54)
[2022-10-15] MEDS ORDERED: HOME MED LIST COMPLETE! XX SCH (22:55)
[2022-10-15] MEDS ORDERED: lamoTRIgine 100MG TAB PO ONE (23:00)
[2022-10-15] MEDS ORDERED: lamoTRIgine 25MG TAB PO ONE (23:00)
[2022-10-15 23:30] VITALS: BP 135/66
[2022-10-16] MEDS ORDERED: PHENYTOIN ER 100 MG CAP PO ONE
[2022-10-16 05:54] VITALS: BP 135/72
[2022-10-16] MEDS: HEPARIN SOD (PORCINE) 5000UNITS/ML 1ML VIAL/SYRINGE SC SCH ×2 (06:25→15:50)
[2022-10-16] MEDS ORDERED: CLOTRIMAZOLE 1% TOPICAL CREAM 30GM TOP PRN (07:35)
[2022-10-16] MEDS ORDERED: BACLOFEN 10 MG TAB PO PRN (07:35)
[2022-10-16] MEDS ORDERED: OMEPRAZOLE 20MG CAP PO PRN (07:35)
[2022-10-16] MEDS ORDERED: PHENYTOIN ER 100 MG CAP PO SCH (09:00)
[2022-10-16] MEDS ORDERED: ASPIRIN 81MG ENTERIC TABLET PO SCH (09:00)
[2022-10-16] MEDS ORDERED: ATORVASTATIN 20 MG TAB PO SCH (09:00)
[2022-10-16] MEDS ORDERED: THIAMINE 100 MG TAB PO SCH (09:00)
[2022-10-16] MEDS ORDERED: FUROSEMIDE 40 MG TAB PO SCH (09:00)
[2022-10-16] MEDS ORDERED: METOPROLOL TART 50 MG TAB PO SCH (09:00)
[2022-10-16] MEDS: lamoTRIgine 25MG TAB PO SCH ×2 (09:05→15:50)
[2022-10-16] MEDS: lamoTRIgine 100MG TAB PO SCH ×2 (09:05→15:51)
[2022-10-16 09:08] VITALS: BP 158/82
[2022-10-16] MEDS ORDERED: ASPI81TAEC PO (15:44)
[2022-10-17] MEDS ORDERED: PHENYTOIN ER 100 MG CAP PO SCH (09:00)
== END 2022-10-16 16:56 | disposition home or self-care (01) | DRG 57 ==
LOC: M ED 17:20 → M ED INP 21:00 → ENRESERV 22:58 → M MSPAV 23:21
PROVIDERS: ADMIT Internal Medicine; ATTEND Family Medicine
DX: I69.351 Hemiplegia and hemiparesis following cerebral infarction affecting right dominant side (principal); Z74.1 Need for assistance with personal care; Z66 Do not resuscitate; I69.320 Aphasia following cerebral infarction; Z99.3 Dependence on wheelchair; I69.398 Other sequelae of cerebral infarction; G40.909 Epilepsy, unspecified, not intractable, without status epilepticus; I10 Essential (primary) hypertension; E78.2 Mixed hyperlipidemia; Z20.822 Contact with and (suspected) exposure to COVID-19; Z79.82 Long term (current) use of aspirin; Z79.899 Other long term (current) drug therapy; Z90.49 Acquired absence of other specified parts of digestive tract

== ENCOUNTER 2023-01-08 11:51 | Observation (INO) | payer MEDICARE, MEDICAID ==
[~2023-01-08] VITALS: Ht 167.6 cm; Wt 81.8 kg
[~2023-01-08 11:51] MED LIST changes: +ASPI81TAEC PO; +BACL10TA2 PO; +CLOT1CRE27 TOP; +EQL50TAB2 PO; +LOPI600T PO; +MELO15TA28 PO; +MIRA1POW3 PO; +OYST500T92 PO
[2023-01-08 12:56] LABS: BASO % 0.7 % (0.0-1.0); EOS # 0.2 10^3/uL (0.0-0.5); HEMOGLOBIN 14.2 g/dl (13.5-17.5); LYMPH # 1.3 10^3/uL (1.5-5.0); LYMPH % 28.9 % (24.0-44.0); MEAN CORPUSCULAR HEMOGLOBIN 33.3 pg (27.0-33.0); MEAN CORPUSCULAR HGB CONC 36.4 g/dl (32.0-36.5); MEAN CORPUSCULAR VOLUME 91.3 fl (80.0-96.0); MONO # 0.4 10^3/uL (0.0-0.8); MONO % 9.1 % (2.0-8.0); NEUTROPHILS # 2.6 10^3/uL (1.5-8.5); NEUTROPHILS % 57.1 % (36.0-66.0); PLATELET COUNT, AUTOMATED 180 10^3/uL (150-450); RED BLOOD COUNT 4.27 10^6/uL (4.30-6.10); WHITE BLOOD COUNT 4.5 10^3/uL (4.0-10.0)
[2023-01-08 13:28] LABS: ALBUMIN 4.2 G/DL (3.2-5.2); ALKALINE PHOSPHATASE 155 U/L (46-116); ALT/SGPT 17 U/L (7.0-40); AST/SGOT 24 U/L (<34); BILIRUBIN,DIRECT 0.1 MG/DL (<0.4); BILIRUBIN,TOTAL 0.4 MG/DL (0.3-1.2); BLOOD UREA NITROGEN 19 MG/DL (9-23); CALCIUM LEVEL 9.4 MG/DL (8.3-10.6); CARBON DIOXIDE LEVEL 25 MMOL/L (20-31); CHLORIDE LEVEL 103 MMOL/L (98-107); CREATININE FOR GFR 0.74 MG/DL (0.70-1.30); GLOMERULAR FILTRATION RATE > 60.0 (>49); GLUCOSE, FASTING 113 MG/DL (74-106); SODIUM LEVEL 139 MMOL/L (136-145); TOTAL PROTEIN 7.5 G/DL (5.7-8.2)
[2023-01-08 13:30] LABS: THYROID STIMULATING HORMONE 2.867 uIU/ML (0.55-4.78)
[2023-01-08 13:49] LABS: RSV AMPLIFICATION NEGATIVE (NEGATIVE)
[2023-01-08] MEDS ORDERED: ASPI81TA26 PO (15:44)
[2023-01-08] MEDS ORDERED: HOME MED LIST COMPLETE! XX SCH (15:45)
[2023-01-08] MEDS ORDERED: lamoTRIgine 100MG TAB PO ONE (16:25)
[2023-01-08] MEDS ORDERED: METOPROLOL TART 25 MG TABLET PO ONE (16:25)
[2023-01-08 19:03] VITALS: BP 163/78
[2023-01-08] MEDS: ACETAMINOPHEN 500 MG TAB PO SCH (21:11)
[2023-01-08] MEDS: lamoTRIgine 100MG TAB PO SCH (21:11)
[2023-01-08] MEDS: lamoTRIgine 25MG TAB PO SCH (21:11)
[2023-01-08] MEDS: DICLOFENAC EPOLAMINE 1.3% PATCH TOP SCH (21:12)
[2023-01-08] MEDS: PHENYTOIN ER 100 MG CAP PO SCH (21:12)
[2023-01-08 21:22] VITALS: BP 160/79
[2023-01-08] MEDS ORDERED: NYSTATIN 100,000 UNITS/GM TOPICAL PWD 15GM TOP PRN (23:00)
[2023-01-09 06:00] VITALS: BP 131/60
[2023-01-09] MEDS: ATORVASTATIN 20 MG TAB PO SCH (09:07)
[2023-01-09] MEDS: lamoTRIgine 25MG TAB PO SCH ×2 (09:07→21:25)
[2023-01-09] MEDS: lamoTRIgine 100MG TAB PO SCH ×3 (09:07→21:25)
[2023-01-09] MEDS: ASPIRIN 81MG ENTERIC TABLET PO SCH (09:07)
[2023-01-09] MEDS: MELOXICAM (MOBIC) 7.5 MG TAB PO SCH (09:08)
[2023-01-09] MEDS: THIAMINE 100 MG TAB PO SCH (09:08)
[2023-01-09] MEDS: FUROSEMIDE 40 MG TAB PO SCH (09:08)
[2023-01-09] MEDS: METOPROLOL TART 50 MG TAB PO SCH (09:10)
[2023-01-09] MEDS: DICLOFENAC EPOLAMINE 1.3% PATCH TOP SCH ×2 (09:11→21:27)
[2023-01-09 14:00] VITALS: BP 141/82
[2023-01-09] MEDS: BACLOFEN 10 MG TAB PO PRN (21:24)
[2023-01-09] MEDS: PHENYTOIN ER 100 MG CAP PO SCH (21:25)
[2023-01-09] MEDS: ACETAMINOPHEN 500 MG TAB PO SCH (21:26)
[2023-01-09 21:40] VITALS: BP 145/81
[2023-01-10 06:00] VITALS: BP 143/84
[2023-01-10] MEDS: DICLOFENAC EPOLAMINE 1.3% PATCH TOP SCH ×3 (07:42→20:38)
[2023-01-10] MEDS: ASPIRIN 81MG ENTERIC TABLET PO SCH (07:43)
[2023-01-10] MEDS: ATORVASTATIN 20 MG TAB PO SCH (07:46)
[2023-01-10] MEDS: MELOXICAM (MOBIC) 7.5 MG TAB PO SCH (07:47)
[2023-01-10] MEDS: lamoTRIgine 25MG TAB PO SCH ×2 (07:47→20:36)
[2023-01-10] MEDS: THIAMINE 100 MG TAB PO SCH (07:47)
[2023-01-10] MEDS: lamoTRIgine 100MG TAB PO SCH ×3 (07:47→20:36)
[2023-01-10] MEDS: FUROSEMIDE 40 MG TAB PO SCH (07:48)
[2023-01-10] MEDS: BACLOFEN 10 MG TAB PO PRN (07:48)
[2023-01-10] MEDS: METOPROLOL TART 50 MG TAB PO SCH (07:49)
[2023-01-10] MEDS: SENOKOT S TAB PO SCH ×2 (09:00→20:37)
[2023-01-10] MEDS: BRIMONIDINE 0.15% OPHTH SOLN 5 ML OU SCH ×2 (09:00→20:41)
[2023-01-10] MEDS: TIMOLOL MALEATE 0.5% OPHTH SOLN 5 ML OU SCH ×2 (09:00→20:40)
[2023-01-10] MEDS: ACETAMINOPHEN 500 MG TAB PO SCH ×2 (09:00→20:37)
[2023-01-10] MEDS: LIDOCAINE 5% (LIDODERM) PATCH TD SCH (09:00)
[2023-01-10] MEDS: MOM 30ML SUSPENSION UDC PO SCH (09:00)
[2023-01-10] MEDS: CLOTRIMAZOLE 1% TOPICAL CREAM 30GM TOP SCH ×2 (13:35→20:38)
[2023-01-10] MEDS ORDERED: ACETAMINOPHEN TAB 650MG DOSE (2X325MG) PO PRN (14:00)
[2023-01-10] MEDS ORDERED: LIDOCAINE 5% (LIDODERM) PATCH TD ONE (14:00)
[2023-01-10 14:27] LABS: BASO % 0.4 % (0.0-1.0); EOS # 0.2 10^3/uL (0.0-0.5); EOS % 2.1 % (0.0-3.0); HEMATOCRIT 38.5 % (42.0-52.0); HEMOGLOBIN 13.9 g/dl (13.5-17.5); LYMPH % 14.1 % (24.0-44.0); MEAN CORPUSCULAR HEMOGLOBIN 33.3 pg (27.0-33.0); MEAN CORPUSCULAR HGB CONC 36.1 g/dl (32.0-36.5); MEAN CORPUSCULAR VOLUME 92.1 fl (80.0-96.0); MONO # 0.7 10^3/uL (0.0-0.8); MONO % 9.6 % (2.0-8.0); NEUTROPHILS # 5.2 10^3/uL (1.5-8.5); NEUTROPHILS % 73.7 % (36.0-66.0); PLATELET COUNT, AUTOMATED 199 10^3/uL (150-450); RED BLOOD COUNT 4.18 10^6/uL (4.30-6.10); WHITE BLOOD COUNT 7.1 10^3/uL (4.0-10.0)
[2023-01-10 14:54] LABS: BLOOD UREA NITROGEN 20 MG/DL (9-23); CALCIUM LEVEL 8.7 MG/DL (8.3-10.6); CARBON DIOXIDE LEVEL 24 MMOL/L (20-31); CHLORIDE LEVEL 108 MMOL/L (98-107); CREATININE FOR GFR 0.81 MG/DL (0.70-1.30); GLOMERULAR FILTRATION RATE > 60.0 (>49); GLUCOSE, FASTING 110 MG/DL (74-106); POTASSIUM SERUM 3.8 MMOL/L (3.5-5.1); SODIUM LEVEL 142 MMOL/L (136-145)
[2023-01-10] MEDS: PHENYTOIN ER 100 MG CAP PO SCH (20:36)
[2023-01-10] MEDS: NAPROXEN 250 MG TAB PO SCH (20:37)
[2023-01-10 21:29] VITALS: BP 121/72
[2023-01-11 06:00] VITALS: BP 158/78
[2023-01-11] MEDS: LIDOCAINE 5% (LIDODERM) PATCH TD SCH (07:56)
[2023-01-11] MEDS: FUROSEMIDE 40 MG TAB PO SCH (07:57)
[2023-01-11] MEDS: ACETAMINOPHEN 500 MG TAB PO SCH ×2 (07:58→21:11)
[2023-01-11] MEDS: lamoTRIgine 100MG TAB PO SCH ×3 (07:58→21:12)
[2023-01-11] MEDS: lamoTRIgine 25MG TAB PO SCH ×2 (07:59→21:11)
[2023-01-11] MEDS: THIAMINE 100 MG TAB PO SCH (07:59)
[2023-01-11] MEDS: ASPIRIN 81MG ENTERIC TABLET PO SCH (07:59)
[2023-01-11] MEDS: ATORVASTATIN 20 MG TAB PO SCH (08:00)
[2023-01-11] MEDS: NAPROXEN 250 MG TAB PO SCH ×2 (08:00→21:13)
[2023-01-11] MEDS: METOPROLOL TART 50 MG TAB PO SCH (08:03)
[2023-01-11] MEDS: BRIMONIDINE 0.15% OPHTH SOLN 5 ML OU SCH ×2 (08:08→21:14)
[2023-01-11] MEDS: MOM 30ML SUSPENSION UDC PO SCH (08:08)
[2023-01-11] MEDS: TIMOLOL MALEATE 0.5% OPHTH SOLN 5 ML OU SCH ×2 (08:08→21:14)
[2023-01-11] MEDS: SENOKOT S TAB PO SCH ×2 (08:08→21:12)
[2023-01-11] MEDS: CLOTRIMAZOLE 1% TOPICAL CREAM 30GM TOP SCH ×2 (08:11→21:13)
[2023-01-11 14:00] VITALS: BP 144/78
[2023-01-11 20:34] VITALS: BP 133/66
[2023-01-11] MEDS: DICLOFENAC EPOLAMINE 1.3% PATCH TOP SCH ×2 (21:00→21:14)
[2023-01-11] MEDS: PHENYTOIN ER 100 MG CAP PO SCH (21:12)
[2023-01-12 05:11] VITALS: BP 141/93
[2023-01-12] MEDS: NAPROXEN 250 MG TAB PO SCH ×2 (08:12→21:40)
[2023-01-12] MEDS: ACETAMINOPHEN 500 MG TAB PO SCH ×2 (08:13→21:40)
[2023-01-12] MEDS: lamoTRIgine 25MG TAB PO SCH ×2 (08:13→21:40)
[2023-01-12] MEDS: ASPIRIN 81MG ENTERIC TABLET PO SCH (08:13)
[2023-01-12] MEDS: ATORVASTATIN 20 MG TAB PO SCH (08:13)
[2023-01-12] MEDS: THIAMINE 100 MG TAB PO SCH (08:14)
[2023-01-12] MEDS: FUROSEMIDE 40 MG TAB PO SCH (08:14)
[2023-01-12] MEDS: lamoTRIgine 100MG TAB PO SCH ×3 (08:14→21:41)
[2023-01-12] MEDS: SENOKOT S TAB PO SCH ×2 (08:14→21:40)
[2023-01-12] MEDS: MOM 30ML SUSPENSION UDC PO SCH (08:14)
[2023-01-12] MEDS: METOPROLOL TART 50 MG TAB PO SCH (08:16)
[2023-01-12] MEDS: DICLOFENAC EPOLAMINE 1.3% PATCH TOP SCH ×2 (08:18→21:00)
[2023-01-12] MEDS: CLOTRIMAZOLE 1% TOPICAL CREAM 30GM TOP SCH ×2 (08:19→21:42)
[2023-01-12] MEDS: LIDOCAINE 5% (LIDODERM) PATCH TD SCH (08:19)
[2023-01-12] MEDS: BRIMONIDINE 0.15% OPHTH SOLN 5 ML OU SCH ×2 (08:20→21:41)
[2023-01-12] MEDS: TIMOLOL MALEATE 0.5% OPHTH SOLN 5 ML OU SCH ×2 (08:20→21:41)
[2023-01-12 14:00] VITALS: BP 131/83
[2023-01-12 23:13] VITALS: BP 127/82
[2023-01-13] MEDS: PHENYTOIN ER 100 MG CAP PO SCH (01:11)
[2023-01-13 04:41] VITALS: BP 138/81
[2023-01-13] MEDS: FUROSEMIDE 40 MG TAB PO SCH (08:20)
[2023-01-13] MEDS: ASPIRIN 81MG ENTERIC TABLET PO SCH (08:21)
[2023-01-13] MEDS: lamoTRIgine 25MG TAB PO SCH (08:21)
[2023-01-13] MEDS: lamoTRIgine 100MG TAB PO SCH (08:21)
[2023-01-13] MEDS: SENOKOT S TAB PO SCH (08:21)
[2023-01-13 08:22] VITALS: BP 135/78
[2023-01-13] MEDS: METOPROLOL TART 50 MG TAB PO SCH (08:22)
[2023-01-13] MEDS: NAPROXEN 250 MG TAB PO SCH (08:22)
[2023-01-13] MEDS: THIAMINE 100 MG TAB PO SCH (08:23)
[2023-01-13] MEDS: TIMOLOL MALEATE 0.5% OPHTH SOLN 5 ML OU SCH (08:23)
[2023-01-13] MEDS: MOM 30ML SUSPENSION UDC PO SCH ×3 (08:23→09:00)
[2023-01-13] MEDS: BRIMONIDINE 0.15% OPHTH SOLN 5 ML OU SCH (08:23)
[2023-01-13] MEDS: ATORVASTATIN 20 MG TAB PO SCH (08:23)
[2023-01-13] MEDS: ACETAMINOPHEN 500 MG TAB PO SCH (08:23)
[2023-01-13] MEDS: DICLOFENAC EPOLAMINE 1.3% PATCH TOP SCH ×3 (08:24→09:00)
[2023-01-13] MEDS: CLOTRIMAZOLE 1% TOPICAL CREAM 30GM TOP SCH (08:24)
[2023-01-13] MEDS: LIDOCAINE 5% (LIDODERM) PATCH TD SCH ×3 (08:24→09:00)
[2023-01-13] MEDS ORDERED: DICL1PAT6 TOP (10:22)
[2023-01-13] MEDS ORDERED: LIDO5TD TD (10:22)
[2023-01-13] MEDS ORDERED: SENN-52 PO (10:22)
[2023-01-13] MEDS ORDERED: ACET-683 PO (10:22)
== END 2023-01-13 12:10 ==
LOC: M ED 11:51 → M ED INP 11:52 → UNDOADMOB 16:12 → M ED INP 16:12 → ENRESERV 17:00 → M ED INP 18:56 → M MS5PR 18:56 → OBSVTOIN 01-10 09:07 → INTOOBSV 01-10 09:07 → UNDODISOB 01-13 12:10
PROVIDERS: ADMIT Internal Medicine Nephrology; ATTEND Internal Medicine Nephrology
DX: R53.1 Weakness (principal); I69.351 Hemiplegia and hemiparesis following cerebral infarction affecting right dominant side; R47.01 Aphasia; I10 Essential (primary) hypertension; E78.00 Pure hypercholesterolemia, unspecified; E78.1 Pure hyperglyceridemia; Z79.82 Long term (current) use of aspirin; Z79.899 Other long term (current) drug therapy; G40.909 Epilepsy, unspecified, not intractable, without status epilepticus; M25.512 Pain in left shoulder
CPT/HCPCS: 36415; 70450; 71045; 73030; 73221; 80048; 80076; 80175; 80185; 81001; 84443; 85025; 87631; 87635; 93005; 93041; 94760; 97161; 97165; 97530; 97535; 99285; G0378

== ENCOUNTER → 2023-01-15 | Outpatient (REF) ==
[~2023-01-15] MED LIST changes: +ACET-683 PO; +ASPI81TA26 PO; +DICL1PAT6 TOP; +LIDO5TD TD; +SENN-52 PO
[2023-01-15 09:53] LABS: HEMATOCRIT 39.5 % (42.0-52.0); HEMOGLOBIN 13.9 g/dl (13.5-17.5); MEAN CORPUSCULAR HEMOGLOBIN 33.1 pg (27.0-33.0); MEAN CORPUSCULAR HGB CONC 35.2 g/dl (32.0-36.5); PLATELET COUNT, AUTOMATED 200 10^3/uL (150-450); WHITE BLOOD COUNT 7.2 10^3/uL (4.0-10.0)
[2023-01-15 10:20] LABS: BLOOD UREA NITROGEN 30 MG/DL (9-23); CALCIUM LEVEL 8.7 MG/DL (8.3-10.6); CARBON DIOXIDE LEVEL 26 MMOL/L (20-31); CHLORIDE LEVEL 106 MMOL/L (98-107); CREATININE FOR GFR 0.96 MG/DL (0.70-1.30); GLOMERULAR FILTRATION RATE > 60.0 (>49); GLUCOSE, FASTING 166 MG/DL (74-106); POTASSIUM SERUM 4.3 MMOL/L (3.5-5.1); SODIUM LEVEL 139 MMOL/L (136-145)
[2023-01-15 10:21] LABS: VITAMIN B12 LEVEL 373 PG/ML (211-911)
[2023-01-18 14:22] LABS: PHENYTOIN (DILANTIN) 27.8 UG/ML (10.0-20.0)
== END ==
PROVIDERS: ATTEND Internal Medicine
DX: G40.909 Epilepsy, unspecified, not intractable, without status epilepticus (principal)

== ENCOUNTER → 2023-01-27 | Outpatient (REF) | payer MEDICARE, MEDICAID | PROVIDERS: ATTEND Internal Medicine | DX: G40.909 Epilepsy, unspecified, not intractable, without status epilepticus (principal) ==

== ENCOUNTER → 2023-02-03 | Outpatient (REF) | payer MEDICARE, MEDICAID | PROVIDERS: ATTEND Internal Medicine | DX: G40.909 Epilepsy, unspecified, not intractable, without status epilepticus (principal) ==

== ENCOUNTER → 2023-02-08 | Outpatient (REF) | payer MEDICARE, MEDICAID | PROVIDERS: ATTEND Internal Medicine | DX: G40.909 Epilepsy, unspecified, not intractable, without status epilepticus (principal) ==

== ENCOUNTER → 2023-02-12 | Outpatient (REF) | payer MEDICAID, MEDICARE | PROVIDERS: ATTEND Internal Medicine | DX: G40.909 Epilepsy, unspecified, not intractable, without status epilepticus (principal) ==

== ENCOUNTER → 2023-02-17 | Outpatient (REF) | payer MEDICARE, MEDICAID ==
[2023-02-17 08:39] LABS: HEMATOCRIT 37.2 % (42.0-52.0); MEAN CORPUSCULAR HEMOGLOBIN 32.7 pg (27.0-33.0); MEAN CORPUSCULAR HGB CONC 34.9 g/dl (32.0-36.5); MEAN CORPUSCULAR VOLUME 93.7 fl (80.0-96.0); PLATELET COUNT, AUTOMATED 149 10^3/uL (150-450); RED BLOOD COUNT 3.97 10^6/uL (4.30-6.10); WHITE BLOOD COUNT 3.6 10^3/uL (4.0-10.0)
[2023-02-17 09:12] LABS: BLOOD UREA NITROGEN 20 MG/DL (9-23); CALCIUM LEVEL 8.7 MG/DL (8.3-10.6); CARBON DIOXIDE LEVEL 25 MMOL/L (20-31); CHLORIDE LEVEL 108 MMOL/L (98-107); CREATININE FOR GFR 0.64 MG/DL (0.70-1.30); GLOMERULAR FILTRATION RATE > 60.0 (>49); GLUCOSE, FASTING 84 MG/DL (74-106); POTASSIUM SERUM 4.2 MMOL/L (3.5-5.1); SODIUM LEVEL 141 MMOL/L (136-145)
[2023-02-17 09:13] LABS: VITAMIN B12 LEVEL 348 PG/ML (211-911)
== END ==
PROVIDERS: ATTEND Internal Medicine
DX: G40.909 Epilepsy, unspecified, not intractable, without status epilepticus (principal)

== ENCOUNTER → 2023-02-22 | Outpatient (REF) | payer MEDICARE, MEDICAID | PROVIDERS: ATTEND Internal Medicine | DX: G40.909 Epilepsy, unspecified, not intractable, without status epilepticus (principal) ==

== ENCOUNTER → 2023-03-01 | Outpatient (REF) | payer MEDICARE, MEDICAID | PROVIDERS: ATTEND Internal Medicine | DX: G40.909 Epilepsy, unspecified, not intractable, without status epilepticus (principal) ==

== ENCOUNTER → 2023-03-15 | Outpatient (REF) | payer MEDICARE, MEDICAID | PROVIDERS: ATTEND Physician Assistant | DX: G40.909 Epilepsy, unspecified, not intractable, without status epilepticus (principal) ==

== ENCOUNTER 2023-07-07 07:25 | Emergency (ER) | payer MEDICARE, MEDICAID ==
[~2023-07-07] VITALS: Ht 167.6 cm; Wt 78.2 kg
[2023-07-07] MEDS ORDERED: lamoTRIgine 100MG TAB PO ONE (08:00)
[2023-07-07] MEDS ORDERED: METOPROLOL TART 50 MG TAB PO ONE (08:00)
[2023-07-07] MEDS ORDERED: FUROSEMIDE 40 MG TAB PO ONE (08:00)
[2023-07-07 08:27] VITALS: BP 176/91
[2023-07-07 08:27] LABS: IONIZED CALCIUM 4.7 MG/DL (4.5-5.3)
[2023-07-07 08:32] LABS: BASO % 0.6 % (0.0-1.0); EOS # 0.2 10^3/uL (0.0-0.5); EOS % 3.5 % (0.0-3.0); HEMATOCRIT 39.7 % (42.0-52.0); HEMOGLOBIN 14.4 g/dl (13.5-17.5); LYMPH % 15.1 % (24.0-44.0); MEAN CORPUSCULAR HEMOGLOBIN 32.5 pg (27.0-33.0); MEAN CORPUSCULAR HGB CONC 36.3 g/dl (32.0-36.5); MEAN CORPUSCULAR VOLUME 89.6 fl (80.0-96.0); MONO # 0.6 10^3/uL (0.0-0.8); MONO % 8.6 % (2.0-8.0); NEUTROPHILS # 4.7 10^3/uL (1.5-8.5); NEUTROPHILS % 71.7 % (36.0-66.0); PLATELET COUNT, AUTOMATED 203 10^3/uL (150-450); RED BLOOD COUNT 4.43 10^6/uL (4.30-6.10); WHITE BLOOD COUNT 6.5 10^3/uL (4.0-10.0)
[2023-07-07 09:04] LABS: ALBUMIN 4.3 G/DL (3.2-5.2); ALKALINE PHOSPHATASE 118 U/L (46-116); ALT/SGPT 17 U/L (7.0-40); AST/SGOT 37 U/L (<34); BILIRUBIN,DIRECT < 0.1 MG/DL (<0.4); BILIRUBIN,TOTAL 0.4 MG/DL (0.3-1.2); BLOOD UREA NITROGEN 17 MG/DL (9-23); CALCIUM LEVEL 9.4 MG/DL (8.3-10.6); CARBON DIOXIDE LEVEL 22 MMOL/L (20-31); CHLORIDE LEVEL 105 MMOL/L (98-107); CREATININE FOR GFR 0.61 MG/DL (0.70-1.30); GLOMERULAR FILTRATION RATE > 60.0 (>49); GLUCOSE, FASTING 105 MG/DL (74-106); POTASSIUM SERUM 5.3 MMOL/L (3.5-5.1); SODIUM LEVEL 136 MMOL/L (136-145)
[2023-07-07] MEDS ORDERED: ACET-910 PO (09:15)
[2023-07-07] MEDS ORDERED: HOME MED LIST COMPLETE! XX SCH (09:15)
[2023-07-07] MEDS ORDERED: SENN1TAB41 PO (09:15)
[2023-07-07] MEDS ORDERED: B-1100TA2 PO (09:15)
[2023-07-07] MEDS ORDERED: MILKSUS3 PO (09:15)
[2023-07-07 11:00] VITALS: TEMP 96.9; O2SAT 96
[2023-07-07 11:01] VITALS: BP 131/78
== END 2023-07-07 11:10 | disposition home or self-care (01) ==
LOC: EDBD 07:25 → M ED 07:25
DX: R56.9 Unspecified convulsions (principal); I10 Essential (primary) hypertension; Z86.73 Personal history of transient ischemic attack (TIA), and cerebral infarction without residual deficits; R47.01 Aphasia; Z79.899 Other long term (current) drug therapy; Z79.82 Long term (current) use of aspirin

== ENCOUNTER → 2023-11-12 | Outpatient (REF) | payer MEDICARE, MEDICAID ==
[~2023-11-12] MED LIST changes: +ACET-910 PO; +B-1100TA2 PO; +MILKSUS3 PO; -MIRA1POW3 PO; +MIRA33506 PO; +SENN1TAB85 PO
== END ==
LOC: M LAB REF 10:08
PROVIDERS: ATTEND Internal Medicine
DX: K62.5 Hemorrhage of anus and rectum (principal)

== ENCOUNTER → 2024-02-04 | Outpatient (REF) | payer MEDICARE, MEDICAID ==
[2024-02-04 09:39] LABS: HEMOGLOBIN 12.3 g/dl (13.5-17.5); MEAN CORPUSCULAR HEMOGLOBIN 33.5 pg (27.0-33.0); MEAN CORPUSCULAR HGB CONC 36.2 g/dl (32.0-36.5); MEAN CORPUSCULAR VOLUME 92.6 fl (80.0-96.0); PLATELET COUNT, AUTOMATED 141 10^3/uL (150-450); RED BLOOD COUNT 3.67 10^6/uL (4.30-6.10); WHITE BLOOD COUNT 3.8 10^3/uL (4.0-10.0)
[2024-02-04 09:48] LABS: HEMOGLOBIN A1c 4.9 % (4.0-6.0)
[2024-02-04 10:06] LABS: CK-MB VALUE MASS 1.1 NG/ML (<3.6)
[2024-02-04 10:09] LABS: ALBUMIN 4.1 G/DL (3.2-5.2); ALKALINE PHOSPHATASE 121 U/L (46-116); ALT/SGPT 17 U/L (7.0-40); AST/SGOT 19 U/L (<34); BILIRUBIN,TOTAL 0.4 MG/DL (0.3-1.2); BLOOD UREA NITROGEN 17 MG/DL (9-23); CALCIUM LEVEL 9.3 MG/DL (8.3-10.6); CARBON DIOXIDE LEVEL 23 MMOL/L (20-31); CHLORIDE LEVEL 106 MMOL/L (98-107); CREATININE FOR GFR 0.74 MG/DL (0.70-1.30); GLOMERULAR FILTRATION RATE > 60.0 (>49); GLUCOSE, FASTING 147 MG/DL (74-106); IRON (FE) 123 UG/DL (65-175); POTASSIUM SERUM 4.8 MMOL/L (3.5-5.1); SODIUM LEVEL 137 MMOL/L (136-145); THYROID STIMULATING HORMONE 4.227 uIU/ML (0.55-4.78); TOTAL PROTEIN 7.3 G/DL (5.7-8.2)
[2024-02-04 10:14] LABS: CPK CREATINE PHOSPHOKINASE 114 U/L (46-171); MB/CK RELATIVE INDEX 0.96 (< OR =4)
== END ==
PROVIDERS: ATTEND Internal Medicine
DX: K62.5 Hemorrhage of anus and rectum (principal); Z79.899 Other long term (current) drug therapy

== ENCOUNTER 2024-05-09 12:00 | Inpatient (IN) | payer MEDICARE, MEDICAID ==
[~2024-05-09] VITALS: Ht 165.1 cm; Wt 85.8 kg
[2024-05-09 12:35] LABS: BASO % 0.4 % (0.0-1.0); EOS # 0.1 10^3/uL (0.0-0.5); EOS % 1.9 % (0.0-3.0); HEMATOCRIT 34.7 % (42.0-52.0); HEMOGLOBIN 12.6 g/dl (13.5-17.5); LYMPH # 0.4 10^3/uL (1.5-5.0); LYMPH % 7.6 % (24.0-44.0); MEAN CORPUSCULAR HEMOGLOBIN 33.8 pg (27.0-33.0); MEAN CORPUSCULAR HGB CONC 36.3 g/dl (32.0-36.5); MONO # 0.5 10^3/uL (0.0-0.8); MONO % 9.5 % (2.0-8.0); NEUTROPHILS # 4.6 10^3/uL (1.5-8.5); NEUTROPHILS % 80.2 % (36.0-66.0); PLATELET COUNT, AUTOMATED 184 10^3/uL (150-450); RED BLOOD COUNT 3.73 10^6/uL (4.30-6.10); WHITE BLOOD COUNT 5.7 10^3/uL (4.0-10.0)
[2024-05-09 13:06] LABS: ALKALINE PHOSPHATASE 173 U/L (46-116); ALT/SGPT 14 U/L (7.0-40); AST/SGOT 25 U/L (<34); BILIRUBIN,DIRECT 0.2 MG/DL (<0.4); BILIRUBIN,TOTAL 0.5 MG/DL (0.3-1.2); BLOOD UREA NITROGEN 15 MG/DL (9-23); CALCIUM LEVEL 9.4 MG/DL (8.3-10.6); CARBON DIOXIDE LEVEL 23 MMOL/L (20-31); CHLORIDE LEVEL 106 MMOL/L (98-107); CREATININE FOR GFR 0.84 MG/DL (0.70-1.30); GLOMERULAR FILTRATION RATE > 60.0 (>49); GLUCOSE, FASTING 149 MG/DL (74-106); POTASSIUM SERUM 4.2 MMOL/L (3.5-5.1); SODIUM LEVEL 138 MMOL/L (136-145); TOTAL PROTEIN 7.5 G/DL (5.7-8.2)
[2024-05-09 13:07] LABS: THYROXINE (T4) 6.3 UG/DL (4.5-10.9)
[2024-05-09 13:08] LABS: THYROID STIMULATING HORMONE 2.542 uIU/ML (0.55-4.78)
[2024-05-09 13:20] LABS: CPK CREATINE PHOSPHOKINASE 118 U/L (46-171); MB/CK RELATIVE INDEX 1.69 (< OR =4)
[2024-05-09 13:21] LABS: PROCALCITONIN 0.08 ng/ml
[2024-05-09 13:42] LABS: ABG HCO3 23.7 MMOL/L (22.0-26.0); ABG O2 SATURATION 96.1 % (95.0-99.0); ABG PARTIAL PRESSURE CO2 35.6 mmHg (35.0-45.0); ABG PARTIAL PRESSURE O2 88.8 mmHg (75.0-100.0); ABG STANDARD HCO3 24.5 MMOL/L. (22.0-26.0); ABG TOTAL CO2 24.8 MMOL/L (23.0-31.0); ABG pH (ARTERIAL) 7.441 UNITS (7.350-7.450)
[2024-05-09 14:26] LABS: CK-MB VALUE MASS 2.4 NG/ML (<3.6)
[2024-05-09 14:27] LABS: MB/CK RELATIVE INDEX 2.16 (< OR =4)
[2024-05-09] MEDS ORDERED: ISOVUE-370 76% 100ML VIAL As Ordered ONE (14:59)
[2024-05-09] MEDS: ASPIRIN 81MG CHEW TABLET PO ONE (15:46)
[2024-05-09] MEDS: NS 1,000 ML IV ONE (15:47)
[2024-05-09] MEDS: lamoTRIgine 100MG TAB PO ONE ×2 (15:47→18:47)
[2024-05-09] MEDS: PIPERACILLIN/TAZOBACTAM SOD 4.5 GM in D5W MINI-BAG PLUS 50 ML IV ONE (15:47)
[2024-05-09 16:14] LABS: CK-MB VALUE MASS 2.3 NG/ML (<3.6)
[2024-05-09 16:16] LABS: MB/CK RELATIVE INDEX 2.07 (< OR =4)
[2024-05-09 18:20] LABS: PHENYTOIN (DILANTIN) 12.3 UG/ML (10.0-20.0)
[2024-05-09] MEDS: PHENYTOIN ER 100 MG CAP PO ONE (19:44)
[2024-05-09] MEDS ORDERED: CALC-341 PO (20:24)
[2024-05-09] MEDS ORDERED: MIRT-10 PO (20:24)
[2024-05-09] MEDS ORDERED: CETI-24 PO (20:24)
[2024-05-09] MEDS ORDERED: HOME MED LIST COMPLETE! XX SCH (20:25)
[2024-05-09 20:33] LABS: ALKALINE PHOSPHATASE 173 U/L (46-116); ALT/SGPT 14 U/L (7.0-40); AST/SGOT 21 U/L (<34); BILIRUBIN,DIRECT 0.2 MG/DL (<0.4); BILIRUBIN,TOTAL 0.5 MG/DL (0.3-1.2); BLOOD UREA NITROGEN 13 MG/DL (9-23); CALCIUM LEVEL 9.4 MG/DL (8.3-10.6); CARBON DIOXIDE LEVEL 27 MMOL/L (20-31); CHLORIDE LEVEL 108 MMOL/L (98-107); CREATININE FOR GFR 0.94 MG/DL (0.70-1.30); GLOMERULAR FILTRATION RATE > 60.0 (>49); GLUCOSE, FASTING 140 MG/DL (74-106); MAGNESIUM LEVEL 2.1 MG/DL (1.8-2.4); SODIUM LEVEL 141 MMOL/L (136-145); TOTAL PROTEIN 7.7 G/DL (5.7-8.2)
[2024-05-09 20:39] LABS: PROCALCITONIN 0.09 ng/ml
[2024-05-09 20:41] LABS: CPK CREATINE PHOSPHOKINASE 131 U/L (46-171); MB/CK RELATIVE INDEX 2.29 (< OR =4)
[2024-05-09] MEDS ORDERED: PILL CUTTER 1 EACH XX PRN (20:45)
[2024-05-10] MEDS ORDERED: ACETAMINOPHEN TAB 650MG DOSE (2X325MG) PO PRN (00:45)
[2024-05-10] MEDS ORDERED: MOM 30ML SUSPENSION UDC PO PRN (00:45)
[2024-05-10] MEDS: HEPARIN SOD (PORCINE) 5000UNITS/ML 1ML VIAL/SYRINGE SQ SCH (06:37)
[2024-05-10 07:19] LABS: CHOLESTEROL RISK RATIO 5.28 (<5); LDL CHOLESTEROL 102.8 MG/DL (<100)
[2024-05-10] MEDS ORDERED: COMBIGAN OU SCH (09:00)
[2024-05-10] MEDS: OMEPRAZOLE 20MG CAP PO SCH (09:57)
[2024-05-10] MEDS: ASPIRIN 81MG ENTERIC TABLET PO SCH (09:57)
[2024-05-10] MEDS: THIAMINE 100 MG TAB PO SCH (09:57)
[2024-05-10] MEDS: lamoTRIgine 100MG TAB PO SCH (09:57)
[2024-05-10] MEDS: SENOKOT S TAB PO SCH (09:57)
[2024-05-10] MEDS: METOPROLOL TART 50 MG TAB PO SCH (09:58)
[2024-05-10] MEDS: ATORVASTATIN 20 MG TAB PO SCH (09:58)
[2024-05-10] MEDS: FUROSEMIDE 40 MG TAB PO SCH (09:58)
[2024-05-10] MEDS: CETIRIZINE (ZyrTEC) 10 MG TAB PO SCH (09:58)
[2024-05-10] MEDS: lamoTRIgine 25MG TAB PO SCH (09:59)
[2024-05-10] MEDS: MELOXICAM (MOBIC) 7.5 MG TAB PO SCH (10:01)
[2024-05-10] MEDS: CALCIUM/VITAMIN D 500 MG TAB PO SCH (10:01)
[2024-05-10 21:45] VITALS: BP 130/76; TEMP 97.9; O2SAT 95
[2024-05-10] MEDS: PHENYTOIN ER 100 MG CAP PO SCH (22:39)
[2024-05-10] MEDS: MIRTAZAPINE 15 MG TAB PO SCH (22:40)
[2024-05-11] VITALS: BP 134/72; TEMP 97.8; O2SAT 94
[2024-05-11 03:37] VITALS: BP 116/82; TEMP 97.7; O2SAT 98
[2024-05-11 08:00] VITALS: BP 162/91; TEMP 97.7; O2SAT 97
[2024-05-11 09:11] LABS: EOS # 0.2 10^3/uL (0.0-0.5); EOS % 5.8 % (0.0-3.0); HEMATOCRIT 34.8 % (42.0-52.0); HEMOGLOBIN 12.4 g/dl (13.5-17.5); MEAN CORPUSCULAR HEMOGLOBIN 34.1 pg (27.0-33.0); MEAN CORPUSCULAR HGB CONC 35.6 g/dl (32.0-36.5); MEAN CORPUSCULAR VOLUME 95.6 fl (80.0-96.0); MONO # 0.5 10^3/uL (0.0-0.8); MONO % 16.2 % (2.0-8.0); NEUTROPHILS # 1.4 10^3/uL (1.5-8.5); NEUTROPHILS % 43.7 % (36.0-66.0); PLATELET COUNT, AUTOMATED 154 10^3/uL (150-450); RED BLOOD COUNT 3.64 10^6/uL (4.30-6.10); WHITE BLOOD COUNT 3.1 10^3/uL (4.0-10.0)
[2024-05-11 09:15] LABS: BASO % 0.9 % (0.0-1.0); EOS # 0.2 10^3/uL (0.0-0.5); EOS % 6.6 % (0.0-3.0); HEMOGLOBIN 12.4 g/dl (13.5-17.5); LYMPH % 32.3 % (24.0-44.0); MEAN CORPUSCULAR HEMOGLOBIN 34.1 pg (27.0-33.0); MEAN CORPUSCULAR HGB CONC 35.4 g/dl (32.0-36.5); MEAN CORPUSCULAR VOLUME 96.2 fl (80.0-96.0); MONO # 0.5 10^3/uL (0.0-0.8); MONO % 15.2 % (2.0-8.0); NEUTROPHILS # 1.4 10^3/uL (1.5-8.5); NEUTROPHILS % 44.7 % (36.0-66.0); PLATELET COUNT, AUTOMATED 161 10^3/uL (150-450); RED BLOOD COUNT 3.64 10^6/uL (4.30-6.10); WHITE BLOOD COUNT 3.2 10^3/uL (4.0-10.0)
[2024-05-11 09:44] LABS: MAGNESIUM LEVEL 2.1 MG/DL (1.8-2.4); PHOSPHORUS LEVEL 3.3 MG/DL (2.4-5.1)
[2024-05-11 09:45] LABS: ALBUMIN 3.9 G/DL (3.2-5.2); ALKALINE PHOSPHATASE 151 U/L (46-116); ALT/SGPT 13 U/L (7.0-40); AST/SGOT 24 U/L (<34); BILIRUBIN,TOTAL 0.3 MG/DL (0.3-1.2); BLOOD UREA NITROGEN 23 MG/DL (9-23); CALCIUM LEVEL 9.6 MG/DL (8.3-10.6); CARBON DIOXIDE LEVEL 24 MMOL/L (20-31); CHLORIDE LEVEL 114 MMOL/L (98-107); CREATININE FOR GFR 0.74 MG/DL (0.70-1.30); GLOMERULAR FILTRATION RATE > 60.0 (>49); GLUCOSE, FASTING 118 MG/DL (74-106); POTASSIUM SERUM 4.3 MMOL/L (3.5-5.1); SODIUM LEVEL 145 MMOL/L (136-145); TOTAL PROTEIN 7.6 G/DL (5.7-8.2)
[2024-05-11 12:00] VITALS: BP 156/90; TEMP 97.9; O2SAT 97
[2024-05-11 12:44] LABS: ALBUMIN 3.9 G/DL (3.2-5.2); ALKALINE PHOSPHATASE 154 U/L (46-116); ALT/SGPT 13 U/L (7.0-40); AST/SGOT 20 U/L (<34); BILIRUBIN,TOTAL 0.3 MG/DL (0.3-1.2); BLOOD UREA NITROGEN 22 MG/DL (9-23); CALCIUM LEVEL 9.6 MG/DL (8.3-10.6); CARBON DIOXIDE LEVEL 23 MMOL/L (20-31); CHLORIDE LEVEL 112 MMOL/L (98-107); GLOMERULAR FILTRATION RATE > 60.0 (>49); GLUCOSE, FASTING 138 MG/DL (74-106); POTASSIUM SERUM 3.7 MMOL/L (3.5-5.1); SODIUM LEVEL 143 MMOL/L (136-145); TOTAL PROTEIN 7.6 G/DL (5.7-8.2)
[2024-05-11 16:00] VITALS: BP 119/88; TEMP 97.7; O2SAT 97
[2024-05-11] MEDS: PHENYTOIN ER 100 MG CAP PO SCH (20:09)
[2024-05-11 20:35] VITALS: BP 143/82; TEMP 98.1; O2SAT 96
[2024-05-12] VITALS (10 sets, daily range): BP systolic 129–136; BP diastolic 76–87; TEMP 97.5–97.9; O2SAT 79–98
[2024-05-12 09:30] LABS: EOS # 0.2 10^3/uL (0.0-0.5); HEMATOCRIT 34.8 % (42.0-52.0); HEMOGLOBIN 12.3 g/dl (13.5-17.5); LYMPH # 0.9 10^3/uL (1.5-5.0); LYMPH % 31.5 % (24.0-44.0); MEAN CORPUSCULAR HEMOGLOBIN 33.9 pg (27.0-33.0); MEAN CORPUSCULAR HGB CONC 35.3 g/dl (32.0-36.5); MEAN CORPUSCULAR VOLUME 95.9 fl (80.0-96.0); MONO # 0.3 10^3/uL (0.0-0.8); NEUTROPHILS # 1.5 10^3/uL (1.5-8.5); NEUTROPHILS % 50.2 % (36.0-66.0); PLATELET COUNT, AUTOMATED 174 10^3/uL (150-450); RED BLOOD COUNT 3.63 10^6/uL (4.30-6.10); WHITE BLOOD COUNT 2.9 10^3/uL (4.0-10.0)
[2024-05-12 10:24] LABS: BLOOD UREA NITROGEN 23 MG/DL (9-23); CALCIUM LEVEL 9.8 MG/DL (8.3-10.6); CARBON DIOXIDE LEVEL 24 MMOL/L (20-31); CHLORIDE LEVEL 109 MMOL/L (98-107); CREATININE FOR GFR 0.78 MG/DL (0.70-1.30); GLOMERULAR FILTRATION RATE > 60.0 (>49); GLUCOSE, FASTING 185 MG/DL (74-106); MAGNESIUM LEVEL 1.9 MG/DL (1.8-2.4); POTASSIUM SERUM 3.8 MMOL/L (3.5-5.1); SODIUM LEVEL 142 MMOL/L (136-145)
[2024-05-12] MEDS ORDERED: CLOB10TA3 PO (10:46)
== END 2024-05-12 14:06 | DRG 101 ==
LOC: M ED 12:00 → EDBD 12:00 → M ED INP 20:12 → M MSPAV 05-10 21:50
PROVIDERS: ADMIT Internal Medicine; ATTEND Hospitalist
DX: G40.919 Epilepsy, unspecified, intractable, without status epilepticus (principal); I69.351 Hemiplegia and hemiparesis following cerebral infarction affecting right dominant side; I69.320 Aphasia following cerebral infarction; I10 Essential (primary) hypertension; E78.5 Hyperlipidemia, unspecified; I70.0 Atherosclerosis of aorta; I25.10 Atherosclerotic heart disease of native coronary artery without angina pectoris; K21.9 Gastro-esophageal reflux disease without esophagitis; I73.9 Peripheral vascular disease, unspecified; M21.371 Foot drop, right foot; Z79.899 Other long term (current) drug therapy; Z79.82 Long term (current) use of aspirin; Z66 Do not resuscitate

== ENCOUNTER 2024-10-07 08:14 | Inpatient (IN) | payer MEDICARE, MEDICAID ==
[~2024-10-07] VITALS: Ht 162.6 cm; Wt 88.0 kg
[2024-10-07] VITALS (31 sets, daily range): BP systolic 93–143; BP diastolic 53–77; TEMP 98.1–98.5; O2SAT 91–98
[~2024-10-07 08:14] MED LIST changes: +CALC-341 PO; +CETI-24 PO; +CLOB10TA3 PO; +MIRT-10 PO
[2024-10-07] MEDS ORDERED: ONDANSETRON 4MG 2ML VIAL IV ONE (08:55)
[2024-10-07 08:58] LABS: VENOUS BASE EXCESS -1.6 (-2.0-2.0); VENOUS HCO3 21.1 MMOL/L (23.0-27.0); VENOUS O2 SATURATION 93.2 % (60.0-80.0); VENOUS PARTIAL PRESSURE CO2 30.7 mmHg (38.0-50.0); VENOUS PARTIAL PRESSURE O2 61.8 mmHg (30.0-50.0); VENOUS PH 7.456 UNITS (7.330-7.430); VENOUS TOTAL CO2 22.1 MMOL/L (24.0-28.0)
[2024-10-07 09:13] LABS: BASO % 0.4 % (0.0-1.0); EOS # 0.1 10^3/uL (0.0-0.5); EOS % 1.3 % (0.0-3.0); LYMPH # 0.7 10^3/uL (1.5-5.0); LYMPH % 9.6 % (24.0-44.0); MEAN CORPUSCULAR HEMOGLOBIN 32.7 pg (27.0-33.0); MEAN CORPUSCULAR HGB CONC 35.9 g/dl (32.0-36.5); MEAN CORPUSCULAR VOLUME 91.1 fl (80.0-96.0); MONO # 0.5 10^3/uL (0.0-0.8); NEUTROPHILS # 6.4 10^3/uL (1.5-8.5); NEUTROPHILS % 82.4 % (36.0-66.0); PLATELET COUNT, AUTOMATED 146 10^3/uL (150-450); RED BLOOD COUNT 4.28 10^6/uL (4.30-6.10); WHITE BLOOD COUNT 7.7 10^3/uL (4.0-10.0)
[2024-10-07] MEDS: NS (Normal Saline) 0.9% 2,660 ML in IV 1 EA IV ONE (09:13)
[2024-10-07] MEDS: ACETAMINOPHEN 325 MG TAB PO ONE (09:21)
[2024-10-07] MEDS: cefTRIAXone SOD 1 GM in DEXTROSE 5% (D5W) ADV/MINI-BAG 50 ML IV ONE (09:22)
[2024-10-07] MEDS: METOCLOPRAMIDE INJ 10MG/2ML VIAL IV ONE (09:22)
[2024-10-07 09:29] LABS: PHENYTOIN (DILANTIN) 21.6 UG/ML (10.0-20.0)
[2024-10-07 09:31] LABS: AMYLASE 43 U/L (30-118); C REACTIVE PROTEIN QUANTITATIV 1.64 MG/DL (<1.0)
[2024-10-07 09:32] LABS: ALBUMIN 3.9 G/DL (3.2-5.2); ALKALINE PHOSPHATASE 201 U/L (40-129); ALT/SGPT 32 U/L (7.0-40); AST/SGOT 42 U/L (<34); BILIRUBIN,DIRECT 0.2 MG/DL (<0.4); BILIRUBIN,TOTAL 0.6 MG/DL (0.3-1.2); BLOOD UREA NITROGEN 10 MG/DL (9-23); CARBON DIOXIDE LEVEL 22 MMOL/L (20-31); CHLORIDE LEVEL 105 MMOL/L (98-107); CREATININE FOR GFR 0.63 MG/DL (0.70-1.30); GLOMERULAR FILTRATION RATE > 60.0 (>49); GLUCOSE, FASTING 143 MG/DL (74-106); POTASSIUM SERUM 4.1 MMOL/L (3.5-5.1); SODIUM LEVEL 141 MMOL/L (136-145); TOTAL PROTEIN 7.6 G/DL (5.7-8.2)
[2024-10-07 09:38] LABS: PROCALCITONIN 0.09 ng/ml
[2024-10-07] MEDS ORDERED: ISOVUE-370 76% 100ML VIAL As Ordered ONE (09:44)
[2024-10-07 09:50] LABS: APPEARANCE, URINE CLEAR (CLEAR); BACTERIA, URINE AUTO NEGATIVE (NEGATIVE); BILIRUBIN, URINE AUTO NEGATIVE (NEGATIVE); BLOOD, URINE BLOOD NEGATIVE (NEGATIVE); COLOR, URINE YELLOW (YELLOW); GLUCOSE, URINE (UA) AUTO NEGATIVE (NEGATIVE); KETONE, URINE AUTO NEGATIVE (NEGATIVE); LEUKOCYTE ESTERASE, URINE AUTO NEGATIVE (NEGATIVE); NITRITE, URINE AUTO NEGATIVE (NEGATIVE); PROTEIN, URINE AUTO 2+ mg/dL (NEGATIVE); RBC, URINE AUTO 5 /HPF (0-3); SPECIFIC GRAVITY URINE AUTO 1.014 (1.002-1.035); SQUAMOUS EPITHELIAL CELL UR AU 0 /HPF (0-6); UROBILINOGEN, URINE AUTO 0.2 mg/dL (0.0-2.0); WBC, URINE AUTO 1 /HPF (0-3)
[2024-10-07] MEDS ORDERED: LORazepam 2 MG/ML 1ML VIAL As Ordered ONE (10:05)
[2024-10-07 11:51] LABS: INR 1.06; PARTIAL THROMBOPLASTIN TIME 28.1 SECONDS (24.8-34.2); PROTHROMBIN TIME 14.1 SECONDS (12.5-14.5)
[2024-10-07] MEDS: IBUPROFEN 600MG TAB PO ONE (11:57)
[2024-10-07] MEDS ORDERED: CLOB10TA3 PO (12:50)
[2024-10-07] MEDS ORDERED: CLOT1CRE56 TOP (12:50)
[2024-10-07] MEDS ORDERED: HOME MED LIST COMPLETE! XX SCH (12:55)
[2024-10-07] MEDS ORDERED: CLOTRIMAZOLE 1% TOPICAL CREAM 30GM TOP PRN (13:45)
[2024-10-07] MEDS ORDERED: SENOKOT S TAB PO PRN (13:45)
[2024-10-07] MEDS ORDERED: PIPERACILLIN/TAZOBACTAM SOD 3.375 GM in DEXTROSE 5% (D5W) ADV/MINI-BAG 50 ML IV SCH (14:00)
[2024-10-07] MEDS: ASPIRIN 81MG ENTERIC TABLET PO SCH (14:13)
[2024-10-07] MEDS: lamoTRIgine 100MG TAB PO SCH ×2 (14:13→20:23)
[2024-10-07] MEDS: DOXYCYCLINE HYCLATE 100MG TABLET PO SCH (14:13)
[2024-10-07] MEDS: OMEPRAZOLE 20MG CAP PO SCH (14:13)
[2024-10-07] MEDS: PIPERACILLIN/TAZOBACTAM SOD 4.5 GM in DEXTROSE 5% (D5W) ADV/MINI-BAG 50 ML IV SCH (14:14)
[2024-10-07] MEDS: NS (Normal Saline) 0.9% 1,000 ML IV SCH (14:14)
[2024-10-07] MEDS: KETOROLAC 30 MG/ML 1ML VIAL IV ONE (14:22)
[2024-10-07] MEDS: NS (Normal Saline) 0.9% 1,000 ML IV ONE (15:03)
[2024-10-07 15:07] LABS: INR 1.16; PARTIAL THROMBOPLASTIN TIME 34.6 SECONDS (24.8-34.2); PROTHROMBIN TIME 15.1 SECONDS (12.5-14.5)
[2024-10-07] MEDS: NOREPINEPHRINE 4MG IN D5 250ML 4 MG in IV 1 EA IV SCH (15:29)
[2024-10-07] MEDS: VANCOMYCIN HCL 1,000 MG, VIAL MATE ADAPTER 1 EACH in NS 250 ML IV ONE (16:40)
[2024-10-07] MEDS: MIRTAZAPINE 15 MG TAB PO SCH (20:22)
[2024-10-07] MEDS: HEPARIN SOD (PORCINE) 5000UNITS/ML 1ML VIAL/SYRINGE SC SCH (20:22)
[2024-10-07] MEDS: PHENYTOIN ER 100 MG CAP PO SCH (20:23)
[2024-10-07] MEDS: BRIMONIDINE 0.15% OPHTH SOLN 5 ML OU SCH (20:24)
[2024-10-07] MEDS: TIMOLOL MALEATE 0.5% OPHTH SOLN 5 ML OU SCH (20:24)
[2024-10-07] MEDS: ATORVASTATIN 20 MG TAB PO SCH (20:24)
[2024-10-07] MEDS ORDERED: lamoTRIgine 25MG TAB PO SCH (21:00)
[2024-10-07] MEDS: VANCOMYCIN HCL 750 MG, VIAL MATE ADAPTER 1 EACH in NS 250 ML IV SCH (22:08)
[2024-10-08] VITALS (14 sets, daily range): BP systolic 98–135; BP diastolic 53–77; TEMP 97.1–101; O2SAT 83–98
[2024-10-08 05:01] LABS: MEAN CORPUSCULAR HGB CONC 34.7 g/dl (32.0-36.5); PLATELET COUNT, AUTOMATED 121 10^3/uL (150-450); RED BLOOD COUNT 3.58 10^6/uL (4.30-6.10); WHITE BLOOD COUNT 9.1 10^3/uL (4.0-10.0)
[2024-10-08 05:03] LABS: HEMOGLOBIN 11.8 g/dl (13.5-17.5)
[2024-10-08 05:32] LABS: ALBUMIN 2.8 G/DL (3.2-5.2); ALKALINE PHOSPHATASE 138 U/L (40-129); ALT/SGPT 28 U/L (7.0-40); AST/SGOT 41 U/L (<34); BILIRUBIN,TOTAL 0.7 MG/DL (0.3-1.2); BLOOD UREA NITROGEN 7 MG/DL (9-23); CALCIUM LEVEL 7.3 MG/DL (8.3-10.6); CARBON DIOXIDE LEVEL 23 MMOL/L (20-31); CHLORIDE LEVEL 107 MMOL/L (98-107); CREATININE FOR GFR 0.58 MG/DL (0.70-1.30); GLOMERULAR FILTRATION RATE > 60.0 (>49); GLUCOSE, FASTING 125 MG/DL (74-106); MAGNESIUM LEVEL 1.5 MG/DL (1.8-2.4); PHOSPHORUS LEVEL 2.3 MG/DL (2.4-5.1); POTASSIUM SERUM 3.3 MMOL/L (3.5-5.1); SODIUM LEVEL 141 MMOL/L (136-145); TOTAL PROTEIN 5.8 G/DL (5.7-8.2)
[2024-10-08] MEDS: POTASSIUM CHLORIDE 10MEQ SR TABLET PO ONE (05:56)
[2024-10-08] MEDS: MAG SULF 1GM/100ML (MAG RUN) 1 GM in IV 1 EA IV SCH (05:56)
[2024-10-08] MEDS: POTASSIUM PHOSPHATE INJ 30 MMOL in D5W 500 ML IV ONE (09:54)
[2024-10-08] MEDS: CALCIUM GLUCONATE 1,000 MG in DEXTROSE 5% (D5W) MINI-BAG PLU 100 ML IV ONE (09:54)
[2024-10-08] MEDS: ACETAMINOPHEN 325 MG TAB PO PRN (20:09)
[2024-10-09] MEDS: NYSTATIN 100,000 UNITS/GM TOPICAL PWD 15GM TOP SCH
[2024-10-09 04:00] VITALS: BP 120/73; TEMP 98.5; O2SAT 99
[2024-10-09 08:00] VITALS: BP 116/68; TEMP 97.9; O2SAT 98
[2024-10-09 09:17] LABS: HEMOGLOBIN 11.4 g/dl (13.5-17.5); MEAN CORPUSCULAR HEMOGLOBIN 33.4 pg (27.0-33.0); MEAN CORPUSCULAR HGB CONC 34.5 g/dl (32.0-36.5); MEAN CORPUSCULAR VOLUME 96.8 fl (80.0-96.0); PLATELET COUNT, AUTOMATED 121 10^3/uL (150-450); RED BLOOD COUNT 3.41 10^6/uL (4.30-6.10); WHITE BLOOD COUNT 6.1 10^3/uL (4.0-10.0)
[2024-10-09 09:46] LABS: ALBUMIN 2.6 G/DL (3.2-5.2); ALKALINE PHOSPHATASE 121 U/L (40-129); ALT/SGPT 23 U/L (7.0-40); AST/SGOT 32 U/L (<34); BILIRUBIN,TOTAL 0.6 MG/DL (0.3-1.2); BLOOD UREA NITROGEN 7 MG/DL (9-23); CALCIUM LEVEL 7.6 MG/DL (8.3-10.6); CARBON DIOXIDE LEVEL 21 MMOL/L (20-31); CHLORIDE LEVEL 103 MMOL/L (98-107); GLOMERULAR FILTRATION RATE > 60.0 (>49); GLUCOSE, FASTING 287 MG/DL (74-106); PHOSPHORUS LEVEL 2.3 MG/DL (2.4-5.1); POTASSIUM SERUM 3.7 MMOL/L (3.5-5.1); SODIUM LEVEL 140 MMOL/L (136-145); TOTAL PROTEIN 6.3 G/DL (5.7-8.2)
[2024-10-09 12:00] VITALS: BP 120/67; TEMP 98.3; O2SAT 99
[2024-10-09 16:00] VITALS: BP 126/72; TEMP 99.1; O2SAT 97
[2024-10-09 20:00] VITALS: BP 128/73; TEMP 99.5; O2SAT 95
[2024-10-09] MEDS: PHENYTOIN ER 100 MG CAP PO SCH (21:25)
[2024-10-10] VITALS: BP 114/65; TEMP 98.3; O2SAT 96
[2024-10-10 04:00] VITALS: BP 165/90; TEMP 97.8; O2SAT 94
[2024-10-10 07:45] VITALS: BP 134/78; TEMP 98.3; O2SAT 91
[2024-10-10 11:12] LABS: HEMATOCRIT 36.1 % (42.0-52.0); HEMOGLOBIN 12.7 g/dl (13.5-17.5); MEAN CORPUSCULAR HEMOGLOBIN 32.4 pg (27.0-33.0); MEAN CORPUSCULAR HGB CONC 35.2 g/dl (32.0-36.5); MEAN CORPUSCULAR VOLUME 92.1 fl (80.0-96.0); PLATELET COUNT, AUTOMATED 163 10^3/uL (150-450); RED BLOOD COUNT 3.92 10^6/uL (4.30-6.10); WHITE BLOOD COUNT 5.1 10^3/uL (4.0-10.0)
[2024-10-10 11:48] LABS: ALBUMIN 2.8 G/DL (3.2-5.2); ALKALINE PHOSPHATASE 131 U/L (40-129); ALT/SGPT 26 U/L (7.0-40); AST/SGOT 28 U/L (<34); BILIRUBIN,TOTAL 0.5 MG/DL (0.3-1.2); BLOOD UREA NITROGEN 12 MG/DL (9-23); CALCIUM LEVEL 8.4 MG/DL (8.3-10.6); CARBON DIOXIDE LEVEL 24 MMOL/L (20-31); CHLORIDE LEVEL 109 MMOL/L (98-107); CREATININE FOR GFR 0.63 MG/DL (0.70-1.30); GLOMERULAR FILTRATION RATE > 60.0 (>49); GLUCOSE, FASTING 139 MG/DL (74-106); MAGNESIUM LEVEL 1.8 MG/DL (1.8-2.4); POTASSIUM SERUM 3.6 MMOL/L (3.5-5.1); SODIUM LEVEL 142 MMOL/L (136-145); TOTAL PROTEIN 6.5 G/DL (5.7-8.2)
[2024-10-10 12:00] VITALS: BP 156/72; TEMP 98; O2SAT 94
[2024-10-10] MEDS: LACTOBACILLUS ACIDOPHILUS CAP (BACID) PO SCH (14:21)
[2024-10-10 15:30] VITALS: BP 126/77; TEMP 97.3; O2SAT 96
[2024-10-10 20:00] VITALS: BP 137/69; TEMP 97.5; O2SAT 97
[2024-10-11 05:28] VITALS: BP 139/82; TEMP 97.5; O2SAT 95
[2024-10-11 06:25] LABS: BLOOD UREA NITROGEN 13 MG/DL (9-23); CALCIUM LEVEL 8.6 MG/DL (8.3-10.6); CARBON DIOXIDE LEVEL 24 MMOL/L (20-31); CHLORIDE LEVEL 111 MMOL/L (98-107); GLOMERULAR FILTRATION RATE > 60.0 (>49); GLUCOSE, FASTING 106 MG/DL (74-106); MAGNESIUM LEVEL 1.9 MG/DL (1.8-2.4); PHOSPHORUS LEVEL 3.7 MG/DL (2.4-5.1); SODIUM LEVEL 145 MMOL/L (136-145)
[2024-10-11 12:00] VITALS: BP 172/81; TEMP 97.7; O2SAT 94
[2024-10-11 20:25] VITALS: BP 167/82; TEMP 97.5; O2SAT 94
[2024-10-11] MEDS: AUGMENTIN 875 MG TAB PO SCH (20:49)
[2024-10-12 04:20] VITALS: BP 161/84; TEMP 97.5; O2SAT 95
[2024-10-12 04:35] VITALS: BP 154/78
[2024-10-12] MEDS ORDERED: LORazepam 2 MG/ML 1ML VIAL IV STA (07:23)
[2024-10-12 10:13] VITALS: BP 154/78
[2024-10-12] MEDS: METOPROLOL TART 50 MG TAB PO SCH (10:13)
[2024-10-12] MEDS: FUROSEMIDE 40 MG TAB PO SCH (10:14)
[2024-10-12] MEDS ORDERED: AMOX875T2 PO (10:36)
[2024-10-12] MEDS ORDERED: DOXY100T PO (10:36)
[2024-10-12] MEDS ORDERED: RISATAB3 PO (10:36)
[2024-10-12 12:00] VITALS: BP 154/87; TEMP 97.9; O2SAT 95
== END 2024-10-12 13:43 | DRG 871 ==
LOC: M ED 08:14 → EDBD 08:14 → M ED INP 13:39 → M ICU 15:48 → M MSPAV 10-10 15:31
PROVIDERS: ADMIT Internal Medicine; ATTEND Student in an Organized Health Care Education/Training Program
DX: A41.9 Sepsis, unspecified organism (principal); R57.1 Hypovolemic shock; G93.41 Metabolic encephalopathy; R65.21 Severe sepsis with septic shock; I69.351 Hemiplegia and hemiparesis following cerebral infarction affecting right dominant side; L03.115 Cellulitis of right lower limb; A04.4 Other intestinal Escherichia coli infections; E83.51 Hypocalcemia; M21.371 Foot drop, right foot; G40.909 Epilepsy, unspecified, not intractable, without status epilepticus; E87.6 Hypokalemia; E86.0 Dehydration; K21.9 Gastro-esophageal reflux disease without esophagitis; K59.00 Constipation, unspecified; I10 Essential (primary) hypertension; E78.5 Hyperlipidemia, unspecified; I69.322 Dysarthria following cerebral infarction; E83.42 Hypomagnesemia; E83.39 Other disorders of phosphorus metabolism; Z79.899 Other long term (current) drug therapy; Z79.82 Long term (current) use of aspirin; D69.6 Thrombocytopenia, unspecified

== ENCOUNTER → 2024-10-19 | Outpatient (REF) | payer MEDICARE, MEDICAID ==
[~2024-10-19] MED LIST changes: +AMOX875T2 PO; +CLOT1CRE56 TOP; +DOXY100T PO; +RISATAB3 PO
[2024-10-19 11:31] LABS: BASO # 0.1 10^3/uL (0.0-0.2); BASO % 0.8 % (0.0-1.0); EOS # 0.4 10^3/uL (0.0-0.5); EOS % 6.4 % (0.0-3.0); HEMATOCRIT 40.1 % (42.0-52.0); LYMPH # 1.4 10^3/uL (1.5-5.0); LYMPH % 22.6 % (24.0-44.0); MEAN CORPUSCULAR HEMOGLOBIN 32.4 pg (27.0-33.0); MEAN CORPUSCULAR HGB CONC 34.9 g/dl (32.0-36.5); MEAN CORPUSCULAR VOLUME 92.8 fl (80.0-96.0); MONO # 0.7 10^3/uL (0.0-0.8); MONO % 10.9 % (2.0-8.0); NEUTROPHILS # 3.6 10^3/uL (1.5-8.5); NEUTROPHILS % 58.8 % (36.0-66.0); PLATELET COUNT, AUTOMATED 278 10^3/uL (150-450); RED BLOOD COUNT 4.32 10^6/uL (4.30-6.10); WHITE BLOOD COUNT 6.1 10^3/uL (4.0-10.0)
[2024-10-19 11:58] LABS: BLOOD UREA NITROGEN 21 MG/DL (9-23); CALCIUM LEVEL 9.1 MG/DL (8.3-10.6); CARBON DIOXIDE LEVEL 26 MMOL/L (20-31); CHLORIDE LEVEL 106 MMOL/L (98-107); GLOMERULAR FILTRATION RATE > 60.0 (>49); GLUCOSE, FASTING 93 MG/DL (74-106); POTASSIUM SERUM 4.1 MMOL/L (3.5-5.1); SODIUM LEVEL 142 MMOL/L (136-145)
== END ==
LOC: SKLAB2 10:15
PROVIDERS: ATTEND Internal Medicine
DX: L03.115 Cellulitis of right lower limb (principal)

== ENCOUNTER → 2024-10-26 | Outpatient (REF) | payer MEDICARE, MEDICAID ==
[2024-10-26 10:25] LABS: BASO % 1.1 % (0.0-1.0); EOS # 0.2 10^3/uL (0.0-0.5); EOS % 4.3 % (0.0-3.0); HEMOGLOBIN 14.5 g/dl (13.5-17.5); LYMPH # 1.1 10^3/uL (1.5-5.0); MEAN CORPUSCULAR HGB CONC 34.5 g/dl (32.0-36.5); MEAN CORPUSCULAR VOLUME 95.7 fl (80.0-96.0); MONO # 0.4 10^3/uL (0.0-0.8); MONO % 11.4 % (2.0-8.0); NEUTROPHILS # 1.9 10^3/uL (1.5-8.5); NEUTROPHILS % 51.9 % (36.0-66.0); PLATELET COUNT, AUTOMATED 224 10^3/uL (150-450); RED BLOOD COUNT 4.39 10^6/uL (4.30-6.10); WHITE BLOOD COUNT 3.7 10^3/uL (4.0-10.0)
[2024-10-26 10:59] LABS: BLOOD UREA NITROGEN 14 MG/DL (9-23); CALCIUM LEVEL 8.9 MG/DL (8.3-10.6); CARBON DIOXIDE LEVEL 24 MMOL/L (20-31); CHLORIDE LEVEL 109 MMOL/L (98-107); CREATININE FOR GFR 0.78 MG/DL (0.70-1.30); GLOMERULAR FILTRATION RATE > 60.0 (>49); GLUCOSE, FASTING 128 MG/DL (74-106); POTASSIUM SERUM 4.7 MMOL/L (3.5-5.1); SODIUM LEVEL 144 MMOL/L (136-145)
== END ==
LOC: SKLAB2 09:42
PROVIDERS: ATTEND Internal Medicine
DX: L03.115 Cellulitis of right lower limb (principal)

== ENCOUNTER → 2024-11-01 | Outpatient (REF) | payer MEDICARE, MEDICAID | LOC: SKLAB2 15:52 | PROVIDERS: ATTEND Internal Medicine | DX: Z53.8 Procedure and treatment not carried out for other reasons (principal) ==

== ENCOUNTER → 2024-11-02 | Outpatient (REF) | payer MEDICARE, MEDICAID ==
[2024-11-02 15:39] LABS: HEMATOCRIT 38.3 % (42.0-52.0); HEMOGLOBIN 13.5 g/dl (13.5-17.5); MEAN CORPUSCULAR HEMOGLOBIN 32.4 pg (27.0-33.0); MEAN CORPUSCULAR HGB CONC 35.2 g/dl (32.0-36.5); MEAN CORPUSCULAR VOLUME 91.8 fl (80.0-96.0); PLATELET COUNT, AUTOMATED 188 10^3/uL (150-450); RED BLOOD COUNT 4.17 10^6/uL (4.30-6.10)
[2024-11-02 16:10] LABS: BLOOD UREA NITROGEN 19 MG/DL (9-23); CALCIUM LEVEL 9.2 MG/DL (8.3-10.6); CARBON DIOXIDE LEVEL 25 MMOL/L (20-31); CHLORIDE LEVEL 106 MMOL/L (98-107); CREATININE FOR GFR 0.76 MG/DL (0.70-1.30); GLOMERULAR FILTRATION RATE > 60.0 (>49); GLUCOSE, FASTING 121 MG/DL (74-106); POTASSIUM SERUM 3.7 MMOL/L (3.5-5.1); SODIUM LEVEL 143 MMOL/L (136-145)
== END ==
LOC: SKLAB2 07:00
PROVIDERS: ATTEND Internal Medicine
DX: G40.909 Epilepsy, unspecified, not intractable, without status epilepticus (principal); I10 Essential (primary) hypertension; Z79.899 Other long term (current) drug therapy

== ENCOUNTER → 2024-11-07 | Outpatient (REF) | payer MEDICARE, MEDICAID ==
[2024-11-07 17:04] LABS: BASO % 0.2 % (0.0-1.0); EOS # 0.1 10^3/uL (0.0-0.5); EOS % 1.3 % (0.0-3.0); HEMATOCRIT 41.4 % (42.0-52.0); HEMOGLOBIN 14.6 g/dl (13.5-17.5); LYMPH # 0.3 10^3/uL (1.5-5.0); LYMPH % 5.7 % (24.0-44.0); MEAN CORPUSCULAR HEMOGLOBIN 33.6 pg (27.0-33.0); MEAN CORPUSCULAR HGB CONC 35.3 g/dl (32.0-36.5); MEAN CORPUSCULAR VOLUME 95.2 fl (80.0-96.0); MONO # 0.3 10^3/uL (0.0-0.8); MONO % 4.6 % (2.0-8.0); NEUTROPHILS # 4.8 10^3/uL (1.5-8.5); NEUTROPHILS % 87.8 % (36.0-66.0); PLATELET COUNT, AUTOMATED 141 10^3/uL (150-450); RED BLOOD COUNT 4.35 10^6/uL (4.30-6.10); WHITE BLOOD COUNT 5.5 10^3/uL (4.0-10.0)
[2024-11-07 17:19] LABS: BLOOD UREA NITROGEN 18 MG/DL (9-23); CALCIUM LEVEL 8.8 MG/DL (8.3-10.6); CARBON DIOXIDE LEVEL 21 MMOL/L (20-31); CHLORIDE LEVEL 102 MMOL/L (98-107); CREATININE FOR GFR 0.74 MG/DL (0.70-1.30); GLOMERULAR FILTRATION RATE > 60.0 (>49); GLUCOSE, FASTING 121 MG/DL (74-106); POTASSIUM SERUM 4.3 MMOL/L (3.5-5.1); SODIUM LEVEL 139 MMOL/L (136-145)
== END ==
LOC: SKLAB2 13:27
PROVIDERS: ATTEND Internal Medicine
DX: R11.2 Nausea with vomiting, unspecified (principal); R19.7 Diarrhea, unspecified

== ENCOUNTER → 2024-12-13 | Outpatient (REF) | payer MEDICARE, MEDICAID | LOC: SKLAB2 11:57 | PROVIDERS: ATTEND Internal Medicine | DX: Z53.9 Procedure and treatment not carried out, unspecified reason (principal) ==

== ENCOUNTER → 2025-02-14 | Outpatient (REF) ==
[~2025-02-14] MED LIST changes: +ACET-907 PO; +ALPH0.156 OU; +ATOR80TA59 PO; +BISA10SU59 PR; +DICL100G10 TOP; -EQL50TAB2 PO; +FLEEENE12 PR; +LAMO-18 PO; -LAMO25TA4 PO; +MAGN400T2 PO; +POTA1TAB23 PO; +TIMO5DRO4 OU; +TIMO5DRO5 OU; +VITA1TAB82 PO
== END ==
PROVIDERS: ATTEND Physician Assistant
DX: G40.909 Epilepsy, unspecified, not intractable, without status epilepticus (principal); Z53.8 Procedure and treatment not carried out for other reasons

== ENCOUNTER → 2025-02-21 | Outpatient (REF) | PROVIDERS: ATTEND Physician Assistant | DX: I10 Essential (primary) hypertension (principal); Z53.8 Procedure and treatment not carried out for other reasons ==

== ENCOUNTER → 2025-02-23 | Outpatient (REF) | payer MEDICAID, MEDICARE ==
[2025-02-23 08:26] LABS: PLATELET COUNT, AUTOMATED 165 10^3/uL (150-450)
[2025-02-23 08:50] LABS: CALCIUM LEVEL 8.8 MG/DL (8.3-10.6); CARBON DIOXIDE LEVEL 24 MMOL/L (20-31); CHLORIDE LEVEL 107 MMOL/L (98-107); CREATININE FOR GFR 0.66 MG/DL (0.70-1.30); GLOMERULAR FILTRATION RATE > 90.0 (>49); POTASSIUM SERUM 3.9 MMOL/L (3.5-5.1); SODIUM LEVEL 143 MMOL/L (136-145)
== END ==
PROVIDERS: ATTEND Physician Assistant
DX: G20.A1 Parkinson's disease without dyskinesia, without mention of fluctuations (principal); Z79.899 Other long term (current) drug therapy

== ENCOUNTER → 2025-03-05 | Outpatient (REF) | PROVIDERS: ATTEND Internal Medicine | DX: R56.9 Unspecified convulsions (principal) ==

== ENCOUNTER → 2025-03-28 | Outpatient (REF) | payer MEDICARE, MEDICAID | PROVIDERS: ATTEND Internal Medicine | DX: G43.909 Migraine, unspecified, not intractable, without status migrainosus (principal); Z53.8 Procedure and treatment not carried out for other reasons ==

== ENCOUNTER → 2025-03-29 | Outpatient (REF) | payer MEDICARE, MEDICAID | PROVIDERS: ATTEND Internal Medicine | DX: G40.909 Epilepsy, unspecified, not intractable, without status epilepticus (principal) ==

== ENCOUNTER → 2025-03-30 | Outpatient (REF) | payer MEDICARE, MEDICAID | PROVIDERS: ATTEND Internal Medicine | DX: G40.909 Epilepsy, unspecified, not intractable, without status epilepticus (principal) ==

== ENCOUNTER → 2025-04-02 | Outpatient (REF) | payer MEDICARE, MEDICAID ==
[2025-04-02 11:43] LABS: PLATELET COUNT, AUTOMATED 179 10^3/uL (150-450)
[2025-04-02 12:14] LABS: CALCIUM LEVEL 9.1 MG/DL (8.3-10.6); CARBON DIOXIDE LEVEL 26 MMOL/L (20-31); CHLORIDE LEVEL 104 MMOL/L (98-107); CREATININE FOR GFR 0.63 MG/DL (0.70-1.30); GLOMERULAR FILTRATION RATE > 90.0 (>49); POTASSIUM SERUM 4.0 MMOL/L (3.5-5.1); SODIUM LEVEL 142 MMOL/L (136-145)
== END ==
PROVIDERS: ATTEND Internal Medicine
DX: G40.909 Epilepsy, unspecified, not intractable, without status epilepticus (principal)

== ENCOUNTER → 2025-05-07 | Outpatient (CLI) | payer MEDICARE, MEDICAID | LOC: M PLALAB 15:02 | PROVIDERS: ATTEND Internal Medicine | DX: Z51.81 Encounter for therapeutic drug level monitoring (principal); Z79.899 Other long term (current) drug therapy ==

== ENCOUNTER → 2025-07-30 | Outpatient (CLI) | payer MEDICARE, MEDICAID ==
[2025-07-30 17:03] LABS: PLATELET COUNT, AUTOMATED 175 10^3/uL (150-450)
[2025-07-30 17:10] LABS: ALT/SGPT 30 U/L (7.0-40); AST/SGOT 27 U/L (<34); CALCIUM LEVEL 9.0 MG/DL (8.3-10.6); CARBON DIOXIDE LEVEL 28 MMOL/L (20-31); CHLORIDE LEVEL 102 MMOL/L (98-107); CREATININE FOR GFR 0.85 MG/DL (0.70-1.30); GLOMERULAR FILTRATION RATE > 90.0 (>49); POTASSIUM SERUM 3.9 MMOL/L (3.5-5.1); SODIUM LEVEL 138 MMOL/L (136-145)
== END ==
LOC: M PLALAB 15:09
PROVIDERS: ATTEND Internal Medicine
DX: G40.89 Other seizures (principal); Z79.899 Other long term (current) drug therapy